=== PATIENT | female | born 1945 | race Caucasian/White ===

== ENCOUNTER 2016-11-24 08:16 | Inpatient (IN) | payer OTHER ==
[2016-11-15 09:58] VITALS: BMI 38.0
--- NOTE | 2016-11-15 11:09 | PAT Medication Instructions ---
Service Date Nov 15, 2016. Current Home Medication List Albuterol Sulfate (Proair Respiclick), 2 PUFFS INH QPM Amlodipine Besylate (Norvasc), 10 MG PO QAM Bupropion Hcl (Bupropion Hcl Er), 1 TAB PO BID Buspirone Hcl (Buspar), 15 MG PO BID Clopidogrel Bisulfate (Clopidogrel), 75 MG PO QAM Duloxetine HCl (Duloxetine HCl), 120 MG PO QAM Folic Acid (Folvite), 1 MG PO QAM Ipratropium [place] (Atrovent Hfa), 1 PUFFS INH BID Levothyroxine Sodium (Synthroid), 25 MCG PO QAM Lisinopril (Lisinopril), 1 TAB PO QAM Meloxicam (Meloxicam), 1 TAB PO QAM Metoprolol Succ (Toprol Xl) (Toprol-Xl ), 100 MG PO QAM Oxycodone Hcl (Oxycodone Hcl), 1 TAB PO TID PRN for Pain Oxygen (Oxygen), 3 LITERS NA HS Ropinirole (Requip), 4 MG PO HS Simvastatin (Simvastatin), 1 TAB PO QAM Tizanidine (Zanaflex ), 4 MG PO Q8 PRN for Anxiety Trazodone HCl (Trazodone HCl), 1 TAB PO HS Medication Instructions For Your Scheduled Surgery Clopidogrel Bisulfate (Clopidogrel), 75 MG PO QAM (per surgeon and PCP instructions- will call with instructions) - Hold the following medications evening prior to surgery: Ropinirole (Requip), 4 MG PO HS - Hold the following medications the morning of surgery: Tizanidine (Zanaflex ), 4 MG PO Q8 PRN for Anxiety Meloxicam (Meloxicam), 1 TAB PO QAM (not told to stop by surgeon) Lisinopril (Lisinopril), 1 TAB PO QAM Folic Acid (Folvite), 1 MG PO QAM - Take the following medications the morning of surgery with a sip of water: Simvastatin (Simvastatin), 1 TAB PO QAM Oxycodone Hcl (Oxycodone Hcl), 1 TAB PO TID PRN for Pain (can take up to four hours prior to surgery if needed) Metoprolol Succ (Toprol Xl) (Toprol-Xl ), 100 MG PO QAM Levothyroxine Sodium (Synthroid), 25 MCG PO QAM Ipratropium [place] (Atrovent Hfa), 1 PUFFS INH BID Duloxetine HCl (Duloxetine HCl), 120 MG PO QAM Bupropion Hcl (Bupropion Hcl Er), 1 TAB PO BID Buspirone Hcl (Buspar), 15 MG PO BID Amlodipine Besylate (Norvasc), 10 MG PO QAM Albuterol Sulfate (Proair Respiclick), 2 PUFFS INH QPM (if needed- also please bring with you on day of surgery) - Take the following medications as scheduled the night before surgery: Trazodone HCl (Trazodone HCl), 1 TAB PO HS Tizanidine (Zanaflex ), 4 MG PO Q8 PRN for Anxiety Oxygen (Oxygen), 3 LITERS NA HS Oxycodone Hcl (Oxycodone Hcl), 1 TAB PO TID PRN for Pain Ipratropium [place] (Atrovent Hfa), 1 PUFFS INH BID Bupropion Hcl (Bupropion Hcl Er), 1 TAB PO BID Buspirone Hcl (Buspar), 15 MG PO BID Albuterol Sulfate (Proair Respiclick), 2 PUFFS INH QPM If you have any questions please call us at [phone] or [phone] ( Daniella) or [phone]
[2016-11-15 11:31] LABS: BASO % 0.5 %; BASO ABS # 0.03 K/uL (0-0.2); COMPLETE YES; EOS % 2.8 %; HEMATOCRIT 39.8 % (37-47); IG% 0.2 %; LYMPH % 20.8 %; LYMPH ABS # 1.17 K/uL (1.2-3.4); MEAN CELL VOLUME 95.9 fL (80-100); MEAN CORPUSCULAR HGB CONC 34.4 g/dl (32-36); MONO % 11.2 %; NEUT % 64.5 %; PLATELET COUNT 218 K/uL (130-400); RED BLOOD COUNT 4.15 M/uL (4.2-5.4); WHITE BLOOD COUNT 5.62 K/uL (4.8-10.8)
[2016-11-15 11:49] LABS: PROTHROMBIN TIME (PATIENT) 10.6 SECONDS (9.0-12.0)
[2016-11-15 11:50] LABS: URINE APPEARANCE CLEAR (CLEAR); URINE BILIRUBIN NEG (NEG); URINE COLOR YELLOW; URINE EPITHELIAL CELL AUTO >30 /lpf (0-5); URINE NITRITE POS (NEG); URINE PH 6.5 (4.5-7.5); URINE SPECIFIC GRAVITY 1.017 (1.000-1.030); UROBILINOGEN NEG (NEG)
[2016-11-15 11:55] LABS: MANUAL MICROSCOPIC REQUIRED? NO; REVIEW REQ? YES
[2016-11-15 12:00] LABS: BUN/CREATININE RATIO 23.2 (10-20); CREATININE 0.85 mg/dl (0.60-1.20); POTASSIUM 4.4 mmol/L (3.5-5.1)
--- NOTE | 2016-11-22 16:18 | HISTORY & PHYSICAL EXAMINATION ---
DATE OF ADMISSION: 11/24/2016 CHIEF COMPLAINT: Lower extremity difficulty, paresthesias, numbness and tingling, hip pain, paresthesias and low back pain. HISTORY OF PRESENT ILLNESS: Radha is a pleasant young lady. She is 71. She is compromised significantly with spinal stenosis, nerve root irritation, lumbar spinal elements. She is somewhat pain free when she sits, significant pain with standing and walking and walking intolerance. PAST MEDICAL HISTORY: Positive for diabetes mellitus, depression, high cholesterol, hypertension, lung carcinoma, stomach ulcers, respiratory issues including COPD and sleep apnea. PAST SURGICAL HISTORY: Includes right and left knee replacement, lung cancer surgery, colon carcinoma surgery as well. ALLERGIES: DEMEROL, PROZAC. FAMILY HISTORY: Heart disease. SOCIAL HISTORY: She is a single young lady, 5 grown children. Never drinks alcohol, has quit cigarette smoking, little activity secondary to her pathology. REVIEW OF SYSTEMS: EYES: She denies any blurred vision, double vision, tinnitus or vertigo. Does have headaches. EAR, NOSE AND THROAT: Negative. CARDIOVASCULAR: Positive for heart disease and palpitations. She has some shortness of breath and lung issues as well. No nausea, vomiting, urgency, frequency. Positive for sleep issues and depression. She admits to some numbness and tingling and paresthesias to the lower extremities. The bulk of her pain is her back and lumbar spine with lower extremity radicular component, no easy bruisability. No immunologic issues. PHYSICAL EXAMINATION: GENERAL: She is 5 feet 3, 200 pounds. She is in no terrible distress sitting. She has significant problems upright standing position. HEAD, EYES, EARS, NOSE, AND THROAT: Essentially normal. CARDIAC: Normal S1, S2. LUNGS: Sounds are diminished. ABDOMEN: Soft, nontender, bowel sounds present. VITAL SIGNS: Blood pressure 130/80, pulse of 80, respiratory rate 16. EXTREMITIES: Intact. Slight muscle atrophy, slight weakness, slight gait abnormality. IMAGES: Demonstrating a grade 1 spondylolisthesis 4 on 5, stenosis 3-4 and 4 on 5. IMPRESSION: A delightful young lady with combination of some pulmonary issues, spinal stenosis issues, spondylolisthesis issues. DISPOSITION: We are having her medically cleared and embarking on surgery on 11/24/2016, posterior approach lumbar spine decompression laminectomy and fusion L3-L5.
[2016-11-24] VITALS (9 sets, daily range): BP systolic 102–143; BP diastolic 69–95; PULSE 73–81; TEMP 36.4–36.9; O2SAT 16–98; Ht 157.5 cm; Wt 95.2 kg
[~2016-11-24] VITALS: Ht 157.5 cm; Wt 95.2 kg
[~2016-11-24 08:16] MED LIST: ALBU18002 INH; AMLO10TA2 PO; ATRIN INH; Aspirin PO; BUPR-266 PO; BUSP15TA70 PO; CEFAZOLIN 2000 MG/60 ML D5W 60 ML IV SCH; CYM60 PO; DSY100 PO; FOLI1TAB7 PO; LACTATED RINGER'S 1000ML IV SCH; LEVO25TA PO; LISI-461 PO; MELO15TA4 PO; METO1TAB69 PO; NSS 1000ML IV SCH; OXGN; OXYC-164 PO; PLV75 PO; ROPI2TAB6 PO; ZCR40 PO; ZNF4 PO
[2016-11-24] MEDS ORDERED: ONDANSETRON INJ 2 MG/ML 2 ML VIAL ONE (08:20)
[2016-11-24] MEDS ORDERED: DEXAMETHASONE SOD INJ 4 MG/ML VIAL ONE (08:20)
[2016-11-24] MEDS ORDERED: ROCURONIUM BROMIDE 10 MG/ML 5 ML VIAL ONE (08:20)
[2016-11-24] MEDS ORDERED: EpHEDrine SULFATE INJ 50 MG/ML AMP ONE (08:20)
[2016-11-24] MEDS ORDERED: FENTANYL CITRATE INJ 50 MCG/1 ML 2 ML VIAL ONE ×2 (08:20→12:13)
[2016-11-24] MEDS ORDERED: GLYCOPYRROLATE INJ 0.2 MG/ML VIAL ONE (08:20)
[2016-11-24] MEDS ORDERED: PROPOFOL IV EMULSION 10 MG/ML 20 ML VIAL IV ONE (08:20)
[2016-11-24] MEDS ORDERED: SUCCINYLCHOLINE CHLORIDE 20 MG/ML 10 ML VIAL IV ONE (08:20)
[2016-11-24] MEDS ORDERED: LIDOCAINE HCL 2% 2 ML VIAL (20MG/ML) ONE (08:20)
[2016-11-24] MEDS ORDERED: NEOSTIGMINE METHYLSULFATE 5 MG/5 ML SYR ONE (08:20)
[2016-11-24] MEDS ORDERED: PHENYLEPHRINE HCL INJ 10 MG/ML VIAL ONE (08:20)
[2016-11-24] MEDS ORDERED: ALBUT/IPRATROP 3MG/0.5MG NEB 3 ML VIAL INH STA (09:32)
[2016-11-24] MEDS ORDERED: MIDAZOLAM HCL 1 MG/ML 2ML VIAL ONE (10:49)
--- NOTE | 2016-11-24 10:58 | History & Physical Bridge Note ---
H&P Re-Evaluation Bridge Note: I have examined the patient, reviewed the History & Physical and in the interval since the performance of the History & Physical I have noted the following changes of clinical significance: No changes noted
[2016-11-24] MEDS ORDERED: VANCOMYCIN HCL 1000MG/20ML VIAL TOP ONE (13:34)
[2016-11-24] MEDS ORDERED: BUPIVACAINE/EPINEPHRINE 0.5% MPF 1:200,000 30 ML VIAL INJ ONE (13:34)
[2016-11-24] MEDS ORDERED: BACITRACIN 50000 UNIT VIAL IR ONE (13:34)
[2016-11-24] MEDS ORDERED: THROMBIN FOR SOLN 20000 UNIT KIT TOP ONE (13:34)
[2016-11-24] MEDS ORDERED: GELATIN SPONGE SZ 100 TOP ONE (13:34)
--- NOTE | 2016-11-24 13:38 | DIAGNOSTIC IMAGING REPORT ---
LUMBAR SPINE, INTRAOPERATIVE FLUOROSCOPY HISTORY: L3-L5 laminectomy. FLUOROSCOPY TIME: 6 seconds. A single image was submitted. FINDINGS: Intraoperative fluoroscopy was provided for the lumbar spine. There are surgical instruments posterior to the lower lumbar spine. Exact levels are difficult to due to the suboptimal image quality. IMPRESSION: Fluoroscopy provided for a L3-L5 laminectomy. Electronically signed by: Kei Aleman M.D. 11/24/2016 1:36 PM Dictated Date/Time: 11/24/2016 1:35 PM
[2016-11-24] MEDS ORDERED: SODIUM CHLORIDE 0.9% 1000ML 1,000 ML IV SCH (13:57)
--- NOTE | 2016-11-24 13:59 | [facility] Post Operative Brief Note ---
Immediate Operative Summary Operative Date Nov 24, 2016. Pre-Operative Diagnosis Grade 1 spondylolisthesis 4 on 5, stenosis 3-4 and 4 on 5. Post-Operative Diagnosis Grade 1 spondylolisthesis 4 on 5, stenosis 3-4 and 4 on 5. Procedure(s) Performed L3-L5 Laminectomy and Fusion Surgeon Dr. Francisco Cline Scrap Breaker Surgeon(s) Bobby Herrera PA-C Estimated Blood Loss 600mL Specimens None per surgeon Complication(s) None Disposition Recovery Room / PACU
[2016-11-24] MEDS ORDERED: OXYCODONE/ACETAMINOPHEN 5-325 TAB PO PRN (14:00)
[2016-11-24] MEDS ORDERED: PROMETHAZINE HCL INJ 12.5 MG in SODIUM CHLORIDE 0.9% 50ML 50 ML IV PRN (14:00)
[2016-11-24] MEDS ORDERED: ACETAMINOPHEN 325 MG TAB PO PRN (14:00)
[2016-11-24] MEDS ORDERED: HYDROmorphone INJ 1 MG/ML SYR ONE ×2 (14:00→15:05)
[2016-11-24] MEDS ORDERED: ONDANSETRON INJ 2 MG/ML 2 ML VIAL IV PRN ×2 (14:00→14:15)
[2016-11-24] MEDS ORDERED: MAGNESIUM HYDROXIDE SUSP 30 ML UDC PO PRN (14:00)
[2016-11-24] MEDS ORDERED: NALOXONE HCL 0.4 MG/1 ML VIAL/CARP IV PRN (14:00)
[2016-11-24] MEDS ORDERED: METOCLOPRAMIDE HCL INJ 5 MG/ML 2 ML VIAL IV PRN (14:00)
[2016-11-24] MEDS: HYDROmorphone INJ 2 MG/ML SYR/VIAL IV PRN ×4 (14:09→14:25)
[2016-11-24] MEDS ORDERED: ATROPINE SULFATE 0.1 MG/ML 5ML SYR IV PRN (14:15)
[2016-11-24] MEDS ORDERED: EpHEDrine SULFATE INJ 50 MG/ML AMP IV PRN (14:15)
[2016-11-24] MEDS ORDERED: PHENYLEPHRINE 100MCG/ML 5ML SYR IV PRN (14:15)
--- NOTE | 2016-11-24 14:46 | OPERATIVE REPORT ---
DATE OF OPERATION: 11/24/2016 PREOPERATIVE DIAGNOSIS: Severe spinal stenosis, L3, L4, L5 lamina and spondylolisthesis 4 on 5. POSTOPERATIVE DIAGNOSIS: Same. PROCEDURE: Included a laminectomy L3, L4, L5, foraminotomy, partial facetectomy, decompression of all neural elements which will be the 5, 4, 3 nerve roots bilaterally. We also did a posterior lateral fusion. There was no instrumentation used, no implants. COMPLICATIONS: Zero. BLOOD LOSS: 600 mL. SURGEON: Dr. Cline. SHEET METAL WORKER: Bobby Herrera PA-C. OPERATION AND FINDINGS: PROCEDURE: The patient was taken to the operating room, generally intubated, anesthetic provided to the patient, placed prone. We worked diligently to get her in good positioning on the table. It was not simple, we scrubbed, prepped, draped sterile, made a skin incision from 3 down, dissecting the soft tissue. We marked with inner operative markings to know the area and location. We then decompressed carefully each neural element laminectomy of L3, 4, 5. Foraminotomy partial facetectomy. We used Kerrison burrs, curettes. It was quite laborious, quite difficult job. We did not encounter any danger meaning we did not harm the patient. At the conclusion of our decompression, I assessed stability. I felt that the patient had a spondylolisthesis, but it was rock solid with no motion whatsoever at the table, significant bone that was bridging from 3, 4 and 5. I felt a fusion would be unnecessary for the patient. We irrigated and closed in layers first with 1 Vicryl, 2-0 and staple gun on the skin, all over Hemovac drain. Prior to closure, we did bone graft out of the transverse processes, 3, 4 and 5 to do a noninstrumented spinal fusion. The patient then returned to PACU in improved stable condition. There were no complications. I attest to the content of the Intraoperative Record and any orders documented therein. Any exceptio ns are noted below.
--- NOTE | 2016-11-24 14:50 | Anesthesiology Progress Note ---
Anesthesia Post Op Note Date & Time Nov 24, 2016 at 14:49 Vital Signs Pain Intensity: 5 Vital Signs Past 12 Hours Date Time Temp Pulse Resp B/P Pulse Ox O2 Delivery O2 Flow Rate FiO2 11/24/16 14:14 71 10 134/95 100 11/24/16 14:14 71 10 11/24/16 14:09 75 17 155/86 100 11/24/16 14:09 75 17 11/24/16 14:04 79 19 11/24/16 14:04 79 19 92/74 100 11/24/16 13:59 80 13 11/24/16 13:59 37.1 85 23 167/96 99 Mask 10 11/24/16 13:59 80 13 162/85 100 11/24/16 11:36 81 14 98 Room Air 11/24/16 08:59 36.5 73 20 142/75 94 Room Air Notes Mental Status: alert / awake / arousable, participated in evaluation Pt Amnestic to Procedure: Yes Nausea / Vomiting: adequately controlled Pain: adequately controlled Airway Patency, RR, SpO2: stable & adequate BP & HR: stable & adequate Hydration State: stable & adequate Anesthetic Complications: no major complications apparent Pt doing well.
[2016-11-24] MEDS ORDERED: IV FLUIDS COMPLETED PRN (15:00)
[2016-11-24] MEDS: SODIUM CHLORIDE 0.9% 1000ML 1,000 ML IV SCH (15:52)
[2016-11-24] MEDS ORDERED: HydrALAZINE HCL 20 MG/ML VIAL IV. PRN (17:45)
[2016-11-24] MEDS: CEFAZOLIN IV 2,000 MG in DEXTROSE 5% 50ML 50 ML IV SCH (17:47)
[2016-11-24] MEDS: DEXAMETHASONE INJ 10 MG in SYRINGE 0 ML IV SCH (17:47)
[2016-11-24] MEDS: HYDROmorphone HCL 0.5MG/ML 50 ML CASSETTE IV PRN ×2 (18:05→23:02)
[2016-11-24 19:10] LABS: BASO % 0.1 %; BASO ABS # 0.01 K/uL (0-0.2); COMPLETE YES; HEMATOCRIT 35.2 % (37-47); IG% 0.1 %; LYMPH % 4.7 %; LYMPH ABS # 0.53 K/uL (1.2-3.4); MEAN CELL VOLUME 96.2 fL (80-100); MEAN CORPUSCULAR HEMOGLOBIN 33.1 pg (25-34); MEAN CORPUSCULAR HGB CONC 34.4 g/dl (32-36); MEAN PLATELET VOLUME 9.5 fL (7.4-10.4); MONO % 3.5 %; NEUT % 91.6 %; PLATELET COUNT 231 K/uL (130-400); RED BLOOD COUNT 3.66 M/uL (4.2-5.4); WHITE BLOOD COUNT 11.18 K/uL (4.8-10.8)
[2016-11-24 19:29] LABS: BUN/CREATININE RATIO 21.2 (10-20); CALCIUM 8.6 mg/dl (8.5-10.1); CREATININE 0.99 mg/dl (0.60-1.20); POTASSIUM 4.9 mmol/L (3.5-5.1)
--- NOTE | 2016-11-24 19:51 | Medical Consult ---
Consultation Date of Consultation: Nov 24, 2016. Attending Physician: Francisco Cline DO Reason for Consultation: Medical management History of Present Illness This is a 71 y/o female with a history of HTN, HLD, CAD, [place], right ICA CVA in 2016, lung cancer, COPD, MADI, Sarmiento's esophagus, hypothyroidism, colon cancer , uterine cancer, insomnia, and restless leg syndrome who presents s/p L3-L5 laminectomy and fusion with Dr. Cline on 11/24 for medical management. The patient is very drowsy and lethargic postoperatively. It was difficult to obtain a complete ROS from the patient as she fell asleep every few seconds or so. She states that she has not urinated, passed gas, or had a bowel movement yet. She has not eaten. She complains of soreness in her back at the surgical site. The patient denies fevers, chills, sweats, chest pain, palpitations, claudication, cough, wheezing, shortness of breath, nausea, vomiting, abdominal pain, dysuria, hematuria, urinary retention, paralysis, weakness, numbness and tingling. Past Medical/Surgical History Medical Problems: (1) Altered mental status Status: Acute (2) Cellulitis of left foot Status: Acute (3) Overdose Status: Acute (4) Suicide gesture Status: Acute Family History Colon cancer Depression Social History Smoking Status: Current Every Day Smoker (11/14 ppd) Smokeless Tobacco Use: No Alcohol Use: none Drug Use: none Marital Status: Housing Status: lives with family (daughter and grandson) Occupation Status: retired Allergies Coded Allergies: Aspirin (Unverified Allergy, Mild, Stomach Pain/Cramping, 11/24/16) Chlorzoxazone (Unverified Allergy, Unknown, DIZZINESS, BALANCE ISSUES , 10/29) Meperidine (Unverified Allergy, Unknown, VOMITING,FAINTING, 11/24/16) Diazepam (Unverified Adverse Reaction, Severe, Suicidal Thoughts, 11/24/16) Fluoxetine (Unverified Adverse Reaction, Mild, Uncontrollable Crying, 11/24) Gabapentin (Verified Adverse Reaction, Unknown, COMBATIVENESS , 11/24/16) Pregabalin (Unverified Adverse Reaction, Unknown, HALLUCINATIONS, 11/24/16) Current Inpatient Medications Current Inpatient Medications Medications (Trade) Dose Ordered Sig/Fran Route Start Time Stop Time Status Last Admin Dose Admin Sodium Chloride 1,000 ml @ 15 mls/hr Q24H IV 11/24/16 06:00 11/25/16 05:59 Cefazolin Sodium (Ancef 2000mg/60 ml D5W) 60 ml @ 100 mls/hr PREOP IV 11/24/16 06:00 11/25/16 05:59 11/24/16 11:07 100 MLS/HR Acetaminophen (Tylenol Tab) 650 mg Q6H PRN PO 11/24/16 14:00 12/24/16 13:59 Hydromorphone HCl (Dilaudid Inj) 1 mg Q3H PRN IV 11/25/16 08:00 12/09/16 07:59 Hydromorphone HCl 1.5 mg 1.5 mg Q3H PRN IV 11/25/16 08:00 12/09/16 07:59 Promethazine HCl/ Sodium Chloride (Phenergan Inj/ Nss 50ml) 50.5 ml @ 202 mls/hr Q6H PRN IV 11/24/16 14:00 12/24/16 13:59 Ondansetron HCl (Zofran Inj) 4 mg Q6H PRN IV 11/24/16 14:00 12/24/16 13:59 Metoclopramide HCl (Reglan Inj) 10 mg Q6H PRN IV 11/24/16 14:00 12/24/16 13:59 Polyethylene (Miralax Powder Packet) 17 gm DAILY PO 11/25/16 09:00 12/25/16 08:59 Bisacodyl (Dulcolax Tab) 5 mg DAILY PRN PO 11/25/16 06:00 12/25/16 05:59 Bisacodyl (Dulcolax Supp) 10 mg DAILY PRN VA 11/25/16 06:00 12/25/16 05:59 Magnesium Hydroxide (Milk Of Magnesia Susp) 30 ml DAILY PRN PO 11/24/16 14:00 12/24/16 13:59 Diphenhydramine HCl (Benadryl Cap) 25 mg Q6H PRN PO 11/24/16 14:00 12/24/16 13:59 Oxycodone/ Acetaminophen (Percocet 5-325MG Tab) 1 tab Q4H PRN PO 11/24/16 14:00 12/08/16 13:59 Oxycodone/ Acetaminophen 2 tab 2 tab Q4H PRN PO 11/24/16 14:00 12/08/16 13:59 Cefazolin Sodium 2000 mg/Dextrose 60 ml @ 100 mls/hr Q8H IV 11/24/16 18:00 11/25/16 10:35 11/24/16 17:47 100 MLS/HR Dexamethasone Sodium Phosphate 10 mg/Syringe 2.5 ml @ 1 mls/min Q8H IV 11/24/16 17:00 11/26/16 01:03 11/24/16 17:47 1 MLS/MIN Sodium Chloride (Nss 1000ml) 1,000 ml @ 80 mls/hr [id number] IV 11/24/16 13:57 12/24/16 13:56 11/24/16 15:52 80 MLS/HR Naloxone HCl (Narcan Inj) 0.1 mg Q5M PRN IV 11/24/16 14:00 11/25/16 08:00 Hydromorphone HCl 25 mg 25 mg PRN PRN IV 11/24/16 14:00 11/25/16 08:00 11/24/16 18:05 25 MG Sodium Chloride (Nss 1000ml) 1,000 ml @ 15 mls/hr Q24H IV 11/24/16 13:57 11/25/16 08:00 Hydromorphone HCl (Dilaudid Inj) 0.5 mg Q5M PRN IV 11/24/16 14:15 11/24/16 19:15 11/24/16 14:25 0.5 MG Ondansetron HCl (Zofran Inj) 4 mg ONE PRN IV 11/24/16 14:15 11/24/16 19:15 Ephedrine Sulfate (EpHEDrine SULFATE INJ) 5 mg Q5M PRN IV 11/24/16 14:15 11/25/16 19:15 Atropine Sulfate (Atropine Sulfate 0.1MG/Ml Inj) 0.5 mg Q1M PRN IV 11/24/16 14:15 11/24/16 19:15 Phenylephrine HCl (Dav-Synephrine 500MCG/5ML Syr) 100 mcg Q5M PRN IV 11/24/16 14:15 11/24/16 19:15 Amlodipine Besylate (Norvasc Tab) 10 mg QAM PO 11/25/16 09:00 12/25/16 08:59 Bupropion HCl (Wellbutrin-Sr Tab) 100 mg BID PO 11/24/16 21:00 12/24/16 20:59 Buspirone HCl (BusPAR TAB) 15 mg BID PO 11/24/16 21:00 12/24/16 20:59 Clopidogrel Bisulfate (plAVix TAB) 75 mg QAM PO 11/25/16 09:00 12/25/16 08:59 Duloxetine HCl (Cymbalta Cap) 120 mg QAM PO 11/25/16 09:00 12/25/16 08:59 Folic Acid (Folvite Tab) 1 mg QAM PO 11/25/16 09:00 12/25/16 08:59 Ipratropium [place] (Atrovent Hfa Inhaler) 1 puffs BID INH 11/24/16 21:00 12/24/16 20:59 Levothyroxine Sodium (Synthroid Tab) 25 mcg DAILYBB PO 11/25/16 06:00 12/25/16 05:59 Lisinopril (Zestril Tab) 10 mg QAM PO 11/25/16 09:00 12/25/16 08:59 Future Hold Metoprolol Succinate (Toprol Xl Tab) 100 mg QAM PO 11/25/16 09:00 12/25/16 08:59 Ropinirole HCl (Requip Tab) 4 mg HS PO 11/24/16 21:00 12/24/16 20:59 Simvastatin (Zocor Tab) 40 mg HS PO 11/24/16 21:00 12/24/16 20:59 Tizanidine HCl (Zanaflex Tab) 4 mg Q8 PRN PO 11/24/16 14:15 12/24/16 14:14 Albuterol (Proair Hfa) 2 puffs QPM INH 11/24/16 21:00 12/24/16 20:59 Miscellaneous (Iv Fluids Completed) 1 ea PRN PRN N/A 11/24/16 15:00 11/24/17 14:59 Hydralazine HCl (HydrALAZINE INJ) 10 mg Q6H PRN IV. 11/24/16 17:45 12/24/16 17:44 Review of Systems See HPI for pertinent positives and negatives. All other systems reviewed and negative. Physical Exam Date Time Temp Pulse Resp B/P Pulse Ox O2 Delivery O2 Flow Rate FiO2 11/24/16 19:18 36.4 77 16 117/95 95 Nasal Cannula 4.0 11/24/16 16:40 36.8 78 20 127/80 92 Nasal Cannula 4.0 11/24/16 16:12 36.8 73 26 143/72 95 Nasal Cannula 4.0 11/24/16 15:50 Nasal Cannula 4.0 11/24/16 15:50 Nasal Cannula 4.0 11/24/16 15:40 36.6 76 24 130/79 94 Nasal Cannula 4.0 11/24/16 15:13 36.5 74 16 116/73 96 Nasal Cannula 4 11/24/16 14:14 71 10 134/95 100 11/24/16 14:14 71 10 11/24/16 14:09 75 17 155/86 100 11/24/16 14:09 75 17 11/24/16 14:04 79 19 11/24/16 14:04 79 19 92/74 100 11/24/16 13:59 80 13 11/24/16 13:59 37.1 85 23 167/96 99 Mask 10 11/24/16 13:59 80 13 162/85 100 11/24/16 11:36 81 14 98 Room Air 11/24/16 08:59 36.5 73 20 142/75 94 Room Air General Appearance: WD/WN, no apparent distress, + obese, + pertinent finding ( very lethargic, falls asleep every few seconds, rouses easily by voice) Head: normocephalic, atraumatic Eyes: normal inspection, PERRL, + pertinent finding (unable to perform EOM as pt kept falling asleep) ENT: normal ENT inspection, hearing grossly normal, pharynx normal Neck: supple, no JVD, trachea midline Respiratory/Chest: lungs clear, normal breath sounds, no respiratory distress Cardiovascular: regular rate, rhythm, no gallop, no murmur Abdomen/GI: normal bowel sounds, non tender, soft Extremities/Musculoskelatal: normal inspection, no calf tenderness, no pedal edema Neurologic/Psych: normal mood/affect, oriented x 3, + pertinent finding ( lethargic, keeps falling sleep, rouses easily) Skin: normal color, warm/dry, no rash Laboratory Results Last 24 Hours Test 11/24/16 17:03 11/24/16 18:50 Bedside Glucose 139 mg/dl White Blood Count 11.18 K/uL Red Blood Count 3.66 M/uL Hemoglobin 12.1 g/dL Hematocrit 35.2 % Mean Corpuscular Volume 96.2 fL Mean Corpuscular Hemoglobin 33.1 pg Mean Corpuscular Hemoglobin Concent 34.4 g/dl Platelet Count 231 K/uL Mean Platelet Volume 9.5 fL Neutrophils (%) (Auto) 91.6 % Lymphocytes (%) (Auto) 4.7 % Monocytes (%) (Auto) 3.5 % Eosinophils (%) (Auto) 0.0 % Basophils (%) (Auto) 0.1 % Neutrophils # (Auto) 10.24 K/uL Lymphocytes # (Auto) 0.53 K/uL Monocytes # (Auto) 0.39 K/uL Eosinophils # (Auto) 0.00 K/uL Basophils # (Auto) 0.01 K/uL RDW Standard Deviation 45.4 fL RDW Coefficient of Variation 13.0 % Immature Granulocyte % (Auto) 0.1 % Immature Granulocyte # (Auto) 0.01 K/uL Sodium Level 143 mmol/L Potassium Level 4.9 mmol/L Chloride Level 107 mmol/L Carbon Dioxide Level 29 mmol/L Anion Gap 7.0 mmol/L Blood Urea Nitrogen 21 mg/dl Creatinine 0.99 mg/dl Est Creatinine Clear Calc Drug Dose 57.7 ml/min Estimated GFR () 67.4 Estimated GFR (Non- 58.1 BUN/Creatinine Ratio 21.2 Random Glucose 137 mg/dl Calcium Level 8.6 mg/dl Assessment & Plan 71 y/o female with a history of HTN, HLD, CAD, KS, right ICA CVA in 2016, lung cancer, COPD, MADI, Sarmiento's esophagus, hypothyroidism, colon cancer, uterine cancer, anxiety and depression, insomnia, and restless leg syndrome who presents s/p L3-L5 laminectomy and fusion with Dr. Cline on 11/24 for medical management. -Pain management, DVT prophylaxis, and PT/OT as per primary team -Hold off on TECH[employer]ICAL SALES [employer]IST pump and any food until patient is more alert/awake, currently a high aspiration risk CAD, h/o KS and CVA, HTN--HR and BP stable -Hold lisinopril 10 mg PO qd until renal function checked/stable -Continue Toprol XL 100 mg PO qd, hold if SBP<100 or HR<60 -Continue amlodipine 10 mg PO qd -Cover with hydralazine 10 mg IV q6h prn SBP >180 -Resume Plavix when ok with primary team HLD -Continue simvastatin 40 mg PO qhs COPD -Continue Atrovent 1 puff inh BID and ProAir 2 puffs inh qpm MADI--Pt does not use CPAP, does not want one ordered -Continue 3L NC qhs Sarmiento's esophagus -Continue Protonix 40 mg PO qd Hypothyroidism -Continue Synthroid 25 mcg PO qd Anxiety and depression -Continue buspirone 15 mg PO BID -Continue bupropion 100 mg PO BID and duloxetine 120 mg PO qd Restless leg syndrome -Continue Requip 4 mg PO qhs Code Status -Level I, FULL RESUSCITATION STATUS Thank you for this consultation. We will continue to follow. I agree with PA assessment and plan CAD stable No chest pain Monitor for acute blood loss anemia Dispo and DVT ppx per primary team
[2016-11-24] MEDS: IPRATROPIUM BROMIDE HFA INHALER INH SCH (21:37)
[2016-11-24] MEDS: ALBUTEROL HFA INHALER 8.5 GM INH SCH (21:37)
[2016-11-24] MEDS: BuPROPion SR 100 MG TABCR PO SCH (21:37)
[2016-11-24] MEDS: SIMVASTATIN 40 MG TAB PO SCH (21:38)
[2016-11-24] MEDS: BusPIRone 15 MG TAB PO SCH (21:38)
[2016-11-24] MEDS: ROPINIROLE HCL 1 MG TAB PO SCH (21:38)
[2016-11-25] VITALS (9 sets, daily range): BP systolic 98–170; BP diastolic 63–105; PULSE 69–86; TEMP 36.4–37.1; O2SAT 85–97
[2016-11-25] MEDS: DEXAMETHASONE INJ 10 MG in SYRINGE 0 ML IV SCH ×3 (00:51→17:44)
[2016-11-25] MEDS: CEFAZOLIN IV 2,000 MG in DEXTROSE 5% 50ML 50 ML IV SCH ×2 (02:09→10:00)
[2016-11-25] MEDS: SODIUM CHLORIDE 0.9% 1000ML 1,000 ML IV SCH (02:10)
[2016-11-25] MEDS: LEVOTHYROXINE 25 MCG TAB PO SCH (05:26)
[2016-11-25] MEDS ORDERED: BISACODYL 5 MG TABEC PO PRN (06:00)
[2016-11-25] MEDS ORDERED: BISACODYL 10 MG SUPP PR PRN (06:00)
[2016-11-25 06:16] LABS: HEMATOCRIT 31.6 % (37-47); MEAN CELL VOLUME 94.6 fL (80-100); MEAN CORPUSCULAR HEMOGLOBIN 32.3 pg (25-34); MEAN CORPUSCULAR HGB CONC 34.2 g/dl (32-36); MEAN PLATELET VOLUME 9.5 fL (7.4-10.4); PLATELET COUNT 231 K/uL (130-400); RED BLOOD COUNT 3.34 M/uL (4.2-5.4); WHITE BLOOD COUNT 9.36 K/uL (4.8-10.8)
[2016-11-25 06:42] LABS: BUN/CREATININE RATIO 24.5 (10-20); CALCIUM 8.3 mg/dl (8.5-10.1); CREATININE 0.87 mg/dl (0.60-1.20); POTASSIUM 4.7 mmol/L (3.5-5.1)
[2016-11-25] MEDS ORDERED: HYDROmorphone INJ 2 MG/ML SYR/VIAL IV PRN (08:00)
[2016-11-25] MEDS ORDERED: HYDROmorphone INJ 1 MG/ML SYR IV PRN (08:00)
[2016-11-25] MEDS: OXYCODONE/ACETAMINOPHEN 5-325 TAB PO PRN ×3 (08:09→19:26)
[2016-11-25] MEDS: AMLODIPINE BESYLATE 5 MG TAB PO SCH (08:09)
[2016-11-25] MEDS: METOPROLOL SUCC 50MG EXT REL TAB PO SCH (08:10)
--- NOTE | 2016-11-25 08:25 | Anesthesiology Progress Note ---
Anesthesia Post Op Note Date & Time Nov 25, 2016 at 08:24 Vital Signs Pain Intensity: 8.0 Vital Signs Past 12 Hours Date Time Temp Pulse Resp B/P Pulse Ox O2 Delivery O2 Flow Rate FiO2 11/25/16 07:53 94 Nasal Cannula 3.0 11/25/16 07:49 36.6 69 16 170/90 94 Nasal Cannula 3.0 11/25/16 04:04 36.7 70 18 127/80 97 Nasal Cannula 4.0 11/25/16 00:10 36.4 70 16 145/75 97 Room Air 11/24/16 23:45 96 Nasal Cannula 4.0 11/24/16 21:30 36.9 76 16 137/83 16 Nasal Cannula 4.0 Notes Mental Status: alert / awake / arousable, participated in evaluation Pt Amnestic to Procedure: Yes Nausea / Vomiting: adequately controlled Pain: adequately controlled Airway Patency, RR, SpO2: stable & adequate BP & HR: stable & adequate Hydration State: stable & adequate Anesthetic Complications: no major complications apparent
[2016-11-25] MEDS: POLYETHYLENE (MIRALAX) 17 GM PACK PO SCH (09:24)
[2016-11-25] MEDS: BuPROPion SR 100 MG TABCR PO SCH ×2 (09:24→20:50)
[2016-11-25] MEDS: DULOXETINE HCL 60 MG CAP PO SCH (09:24)
[2016-11-25] MEDS: CLOPIDOGREL BISULFATE 75 MG TAB PO SCH (09:24)
[2016-11-25] MEDS: BusPIRone 15 MG TAB PO SCH ×2 (09:24→20:45)
[2016-11-25] MEDS: IPRATROPIUM BROMIDE HFA INHALER INH SCH ×2 (09:25→20:44)
[2016-11-25] MEDS ORDERED: NURSING VERBAL MED ORDER ONE (11:15)
--- NOTE | 2016-11-25 17:46 | Progress Note ---
Subjective Date of Service: Nov 25, 2016. Subjective Pt evaluation today including: conversation w/ patient, physical exam, chart review, lab review, review of inpatient medication list some back pain pulse ox low but doesn't feel sob. notes that she wears oxygen at bedtime - supposed to wear CPAP but "i throw it off at 2am" notes she's not followed up w sleep medicine since moving to [facility] a year ago. notes had lung resection. relates an ortho PA (who is not familiar to me by name) that she does not want seeing her. no f/c/s no other complaints difficult to obtain full HPI and ROS as she mostly wants to relate why she does not want to see this PA. but as best i can ascertain HPI and ROS otherwise is negative Problem List Medical Problems: (1) Altered mental status Status: Acute (2) Cellulitis of left foot Status: Acute (3) Overdose Status: Acute (4) Suicide gesture Status: Acute Review of Systems ros otherwise negative except for as above Objective Vital Signs Date Time Temp Pulse Resp B/P Pulse Ox O2 Delivery O2 Flow Rate FiO2 11/25/16 15:35 37.0 80 18 137/87 95 Nasal Cannula 2.0 11/25/16 11:34 37.1 86 14 148/84 95 Nasal Cannula 2.0 11/25/16 10:03 155/105 94 Nasal Cannula 2.0 11/25/16 07:53 94 Nasal Cannula 3.0 11/25/16 07:49 36.6 69 16 170/90 94 Nasal Cannula 3.0 11/25/16 07:35 Nasal Cannula 3.0 11/25/16 04:04 36.7 70 18 127/80 97 Nasal Cannula 4.0 11/25/16 00:10 36.4 70 16 145/75 97 Room Air 11/24/16 23:45 96 Nasal Cannula 4.0 11/24/16 21:30 36.9 76 16 137/83 16 Nasal Cannula 4.0 11/24/16 20:16 36.5 74 12 102/69 96 Nasal Cannula 4.0 11/24/16 19:18 36.4 77 16 117/95 95 Nasal Cannula 4.0 Physical Exam General Appearance: no apparent distress Eyes: EOMI ENT: hearing grossly normal Neck: trachea midline Respiratory/Chest: no respiratory distress, no accessory muscle use, + decreased breath sounds (globally, but L side more diminished; no r/r/w good effort. pulse ox ~88-89% then improves after incentive spirometry to mid 90's) Cardiovascular: regular rate, rhythm Extremities: normal range of motion Neurologic/Psychiatric: disease education specialist II-XII nml as tested, alert Skin: normal color, warm/dry Laboratory Results Last 24 Hours Test 11/24/16 18:50 11/25/16 05:30 White Blood Count 11.18 K/uL 9.36 K/uL Red Blood Count 3.66 M/uL 3.34 M/uL Hemoglobin 12.1 g/dL 10.8 g/dL Hematocrit 35.2 % 31.6 % Mean Corpuscular Volume 96.2 fL 94.6 fL Mean Corpuscular Hemoglobin 33.1 pg 32.3 pg Mean Corpuscular Hemoglobin Concent 34.4 g/dl 34.2 g/dl Platelet Count 231 K/uL 231 K/uL Mean Platelet Volume 9.5 fL 9.5 fL Neutrophils (%) (Auto) 91.6 % Lymphocytes (%) (Auto) 4.7 % Monocytes (%) (Auto) 3.5 % Eosinophils (%) (Auto) 0.0 % Basophils (%) (Auto) 0.1 % Neutrophils # (Auto) 10.24 K/uL Lymphocytes # (Auto) 0.53 K/uL Monocytes # (Auto) 0.39 K/uL Eosinophils # (Auto) 0.00 K/uL Basophils # (Auto) 0.01 K/uL RDW Standard Deviation 45.4 fL 44.3 fL RDW Coefficient of Variation 13.0 % 12.8 % Immature Granulocyte % (Auto) 0.1 % Immature Granulocyte # (Auto) 0.01 K/uL Sodium Level 143 mmol/L 144 mmol/L Potassium Level 4.9 mmol/L 4.7 mmol/L Chloride Level 107 mmol/L 107 mmol/L Carbon Dioxide Level 29 mmol/L 30 mmol/L Anion Gap 7.0 mmol/L 7.0 mmol/L Blood Urea Nitrogen 21 mg/dl 21 mg/dl Creatinine 0.99 mg/dl 0.87 mg/dl Est Creatinine Clear Calc Drug Dose 57.7 ml/min 65.7 ml/min Estimated GFR () 67.4 78.8 Estimated GFR (Non- 58.1 68.0 BUN/Creatinine Ratio 21.2 24.5 Random Glucose 137 mg/dl 129 mg/dl Calcium Level 8.6 mg/dl 8.3 mg/dl Assessment and Plan hypoxia -most likely atelectasis superimposed on baseline impaired lung function and impaired lung volumes -continue O2, supportive care, and serial exams to r/o any developing process -incentive spirometry (encouraged to do it 5x/hr) acute blood loss anemia -no s/s -no hypotension -no indications for transfusion -f/u in AM CAD, h/o [place] and CVA, HTN--HR and BP stable -can resume lisinopril -Continue Toprol XL 100 mg PO qd, hold if SBP<100 or HR<60 -Continue amlodipine 10 mg PO qd -Cover with hydralazine 10 mg IV q6h prn SBP >180 -Resume Plavix when ok with primary team HLD -Continue simvastatin 40 mg PO qhs COPD -Continue Atrovent 1 puff inh BID and ProAir 2 puffs inh qpm MADI--doesn't want CPAP - tried to explain how O2 is not sufficient treatment to alter MADI morbidity and mortality. highly recommended f/u sleep medicine in [facility]. 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
[2016-11-25] MEDS: ALBUTEROL HFA INHALER 8.5 GM INH SCH (20:44)
[2016-11-25] MEDS: TRAZODONE HCL 100 MG TAB PO SCH (20:46)
[2016-11-25] MEDS: SIMVASTATIN 40 MG TAB PO SCH (21:41)
[2016-11-25] MEDS: ROPINIROLE HCL 1 MG TAB PO SCH (21:42)
[2016-11-26] MEDS: DEXAMETHASONE INJ 10 MG in SYRINGE 0 ML IV SCH (00:27)
[2016-11-26] MEDS: LEVOTHYROXINE 25 MCG TAB PO SCH (06:06)
[2016-11-26 06:34] LABS: HEMATOCRIT 27.4 % (37-47); MEAN CELL VOLUME 95.8 fL (80-100); MEAN CORPUSCULAR HEMOGLOBIN 33.2 pg (25-34); MEAN CORPUSCULAR HGB CONC 34.7 g/dl (32-36); MEAN PLATELET VOLUME 9.7 fL (7.4-10.4); PLATELET COUNT 197 K/uL (130-400); RED BLOOD COUNT 2.86 M/uL (4.2-5.4)
[2016-11-26 07:08] LABS: BUN/CREATININE RATIO 30.9 (10-20); CALCIUM 8.6 mg/dl (8.5-10.1); CREATININE 0.83 mg/dl (0.60-1.20); POTASSIUM 4.3 mmol/L (3.5-5.1)
[2016-11-26 08:30] VITALS: BP 165/83; PULSE 74; TEMP 36.3; O2SAT 94
[2016-11-26] MEDS: CLOPIDOGREL BISULFATE 75 MG TAB PO SCH (08:48)
[2016-11-26] MEDS: AMLODIPINE BESYLATE 5 MG TAB PO SCH (08:48)
[2016-11-26] MEDS: METOPROLOL SUCC 50MG EXT REL TAB PO SCH (08:48)
[2016-11-26] MEDS: IPRATROPIUM BROMIDE HFA INHALER INH SCH ×2 (08:49→20:54)
[2016-11-26] MEDS: DULOXETINE HCL 60 MG CAP PO SCH (08:49)
[2016-11-26] MEDS: POLYETHYLENE (MIRALAX) 17 GM PACK PO SCH (08:50)
[2016-11-26 09:14] VITALS: O2SAT 94
--- NOTE | 2016-11-26 09:46 | Discharge Instructions ---
Discharge Instructions Admission Reason for Admission: Spinal Stenosis Discharge Discharge Diagnosis / Problem: stenosis Discharge Goals Goal(s): Improve function Activity Recommendations Activity Limitations: as noted below Lifting Limitations: gradually increase as tolerated Exercise/Sports Limitations: until after follow-up appointment May Resume Sexual Activity: after follow-up appointment Shower/Bathe: may shower/bathe in 3 days, keep incision dry Driving or Machine Use: just be smart . Current Hospital Diet Patient's current hospital diet: Regular Diet Discharge Diet Recommended Diet: Regular Diet Fluid Restriction: None Procedures Procedures Performed: L3-L5 Laminectomy and Fusion Pending Studies Studies pending at discharge: no Medical Emergencies . Who to Call and When: Medical Emergencies: If at any time you feel your situation is an emergency, please call 911 immediately. . Non-Emergent Contact Non-Emergency issues call your: Surgeon . "Provider Documentation" section prepared by Francisco Cline. VTE Core Measure Inpt VTE Proph given/why not?: Treatment not indicated
[2016-11-26] MEDS: BusPIRone 15 MG TAB PO SCH ×2 (10:03→20:55)
[2016-11-26] MEDS: BuPROPion SR 100 MG TABCR PO SCH ×2 (10:03→20:57)
[2016-11-26] MEDS: LISINOPRIL 10 MG TAB PO SCH (11:36)
[2016-11-26] MEDS: OXYCODONE/ACETAMINOPHEN 5-325 TAB PO PRN ×2 (11:38→18:22)
--- NOTE | 2016-11-26 11:41 | Hospitalist Progress Note ---
Hospitalist Progress Note Date of Service Nov 26, 2016. (Makenna Reed ., KATY) Subjective Pt evaluation today including: conversation w/ patient, physical exam, chart review, lab review, review of inpatient medication list Voiding: no voiding problems, no incontinence Patient states she is feeling OK. + 8/10 pain. She is eating and drinking OK. Denies any gas or BM postop. Patient denies any fever, chills, sweats, lightheadedness, dizziness, vision changes, CP, palpitations, edema, SOB, wheezing, cough, abdominal pain, nausea, vomiting, diarrhea, urinary symptoms, melena, numbness/tingling, weakness, anxiety/depression, active bleeding, or new skin discoloration/changes. (Makenna Reed ., DIMITRYC) Medications Current Inpatient Medications Medications (Trade) Dose Ordered Sig/Fran Route Start Time Stop Time Status Last Admin Dose Admin Acetaminophen (Tylenol Tab) 650 mg Q6H PRN PO 11/24/16 14:00 12/24/16 13:59 Hydromorphone HCl (Dilaudid Inj) 1 mg Q3H PRN IV 11/25/16 08:00 12/09/16 07:59 11/25/16 09:23 1 MG Hydromorphone HCl 1.5 mg 1.5 mg Q3H PRN IV 11/25/16 08:00 12/09/16 07:59 Promethazine HCl/ Sodium Chloride (Phenergan Inj/ Nss 50ml) 50.5 ml @ 202 mls/hr Q6H PRN IV 11/24/16 14:00 12/24/16 13:59 Ondansetron HCl (Zofran Inj) 4 mg Q6H PRN IV 11/24/16 14:00 12/24/16 13:59 Metoclopramide HCl (Reglan Inj) 10 mg Q6H PRN IV 11/24/16 14:00 12/24/16 13:59 Polyethylene (Miralax Powder Packet) 17 gm DAILY PO 11/25/16 09:00 12/25/16 08:59 11/26/16 08:50 17 GM Bisacodyl (Dulcolax Tab) 5 mg DAILY PRN PO 11/25/16 06:00 12/25/16 05:59 Bisacodyl (Dulcolax Supp) 10 mg DAILY PRN [place] 11/25/16 06:00 12/25/16 05:59 Magnesium Hydroxide (Milk Of Magnesia Susp) 30 ml DAILY PRN PO 11/24/16 14:00 12/24/16 13:59 Diphenhydramine HCl (Benadryl Cap) 25 mg Q6H PRN PO 11/24/16 14:00 12/24/16 13:59 Oxycodone/ Acetaminophen (Percocet 5-325MG Tab) 1 tab Q4H PRN PO 11/24/16 14:00 12/08/16 13:59 Oxycodone/ Acetaminophen (Percocet 5-325MG Tab) 2 tab Q4H PRN PO 11/24/16 14:00 12/08/16 13:59 11/25/16 19:26 2 TAB Amlodipine Besylate (Norvasc Tab) 10 mg QAM PO 11/25/16 09:00 12/25/16 08:59 11/26/16 08:48 10 MG Bupropion HCl (Wellbutrin-Sr Tab) 100 mg BID PO 11/24/16 21:00 12/24/16 20:59 11/26/16 10:03 100 MG Buspirone HCl (BusPAR TAB) 15 mg BID PO 11/24/16 21:00 12/24/16 20:59 11/26/16 10:03 15 MG Clopidogrel Bisulfate (plAVix TAB) 75 mg QAM PO 11/25/16 09:00 12/25/16 08:59 11/26/16 08:48 75 MG Duloxetine HCl (Cymbalta Cap) 120 mg QAM PO 11/25/16 09:00 12/25/16 08:59 11/26/16 08:49 120 MG Folic Acid (Folvite Tab) 1 mg QAM PO 11/25/16 09:00 12/25/16 08:59 11/26/16 08:49 [address] [place] (Atrovent Hfa Inhaler) 1 puffs BID INH 11/24/16 21:00 12/24/16 20:59 11/26/16 08:49 1 PUFFS Levothyroxine Sodium (Synthroid Tab) 25 mcg DAILYBB PO 11/25/16 06:00 12/25/16 05:59 11/26/16 06:06 25 MCG Lisinopril (Zestril Tab) 10 mg QAM PO 11/25/16 09:00 12/25/16 08:59 Future hold Metoprolol Succinate (Toprol Xl Tab) 100 mg QAM PO 11/25/16 09:00 12/25/16 08:59 11/26/16 08:48 100 MG Ropinirole HCl (Requip Tab) 4 mg HS PO 11/24/16 21:00 12/24/16 20:59 11/25/16 21:42 4 MG Simvastatin (Zocor Tab) 40 mg HS PO 11/24/16 21:00 12/24/16 20:59 11/25/16 21:41 40 MG Tizanidine HCl (Zanaflex Tab) 4 mg Q8 PRN PO 11/24/16 14:15 12/24/16 14:14 Albuterol (Proair Hfa) 2 puffs QPM INH 11/24/16 21:00 12/24/16 20:59 11/25/16 20:44 2 PUFFS Miscellaneous (Iv Fluids Completed) 1 ea PRN PRN N/A 11/24/16 15:00 11/24/17 14:59 Hydralazine HCl (HydrALAZINE INJ) 10 mg Q6H PRN IV. 11/24/16 17:45 12/24/16 17:44 Trazodone HCl (Desyrel Tab) 150 mg HS PO 11/25/16 21:00 12/25/16 20:59 11/25/16 20:46 150 MG (Makenna Reed, KATY) Objective Vital Signs Date Time Temp Pulse Resp B/P Pulse Ox O2 Delivery O2 Flow Rate FiO2 11/26/16 09:14 94 Nasal Cannula 2.0 11/26/16 08:30 36.3 74 16 165/83 94 Nasal Cannula 2.0 11/26/16 08:10 Room Air 11/26/16 00:20 Nasal Cannula 2.0 11/25/16 22:48 96 Nasal Cannula 2.0 11/25/16 22:45 36.9 81 16 98/63 85 Room Air 11/25/16 22:05 Nasal Cannula 2.0 11/25/16 15:35 37.0 80 18 137/87 95 Nasal Cannula 2.0 11/25/16 11:34 37.1 86 14 148/84 95 Nasal Cannula 2.0 11/25/16 10:03 155/105 94 Nasal Cannula 2.0 (Makenna Reed, PA-C) Physical Exam General Appearance: no apparent distress Eyes: normal inspection, PERRL ENT: hearing grossly normal Neck: supple Respiratory/Chest: lungs clear, no respiratory distress, no accessory muscle use, + decreased breath sounds (throughout ) Cardiovascular: regular rate, rhythm, no edema Abdomen: normal bowel sounds, non tender, soft, + pertinent finding (lumbar support brace present ) Extremities: non-tender, no pedal edema, no calf tenderness Neurologic/Psychiatric: alert, normal mood/affect, oriented x 3 Skin: normal color, warm/dry, no rash (Makenna Reed ., WILL-C) Laboratory Results Last 24 Hours Test 11/26/16 05:50 White Blood Count 11.60 K/uL Red Blood Count 2.86 M/uL Hemoglobin 9.5 g/dL Hematocrit 27.4 % Mean Corpuscular Volume 95.8 fL Mean Corpuscular Hemoglobin 33.2 pg Mean Corpuscular Hemoglobin Concent 34.7 g/dl RDW Standard Deviation 45.3 fL RDW Coefficient of Variation 13.0 % Platelet Count 197 K/uL Mean Platelet Volume 9.7 fL Sodium Level 143 mmol/L Potassium Level 4.3 mmol/L Chloride Level 107 mmol/L Carbon Dioxide Level 29 mmol/L Anion Gap 7.0 mmol/L Blood Urea Nitrogen 26 mg/dl Creatinine 0.83 mg/dl Est Creatinine Clear Calc Drug Dose 68.8 ml/min Estimated GFR () 83.4 Estimated GFR (Non- 71.9 BUN/Creatinine Ratio 30.9 Random Glucose 145 mg/dl Calcium Level 8.6 mg/dl (Makenna Reed, PA-C) Assessment and Plan 71 y/o female with a history of HTN, HLD, CAD, VA, right ICA CVA in 2016, lung cancer, COPD, MADI, Sarmiento's esophagus, hypothyroidism, colon cancer, uterine cancer, anxiety and depression, insomnia, and restless leg syndrome who presents s/p L3-L5 laminectomy and fusion with Dr. Cline on 11/24 for medical management. -Pain management, DVT prophylaxis, and PT/OT as per primary team Hypoxia, likely secondary to atelectasis superimposed on chronic COPD -Continue O2 supplement PRN for hypoxia --When interviewing patient, 93% on RA -Reinforced incentive spirometry usage Anemia, likely secondary to acute blood loss s/p L3-L5 laminectomy and fusion -Hgb slowly trending downward, but stable- 9.5 on 11/26 -Continue to monitor, follow CBC CAD, h/o VA and CVA, HTN--HR and BP stable -Hold Lisinopril 10 mg PO qd until renal function checked/stable -- Resumed on 11/25 -Continue Toprol XL 100 mg PO qd, hold if SBP<100 or HR<60 -Continue Amlodipine 10 mg PO qd -Cover with Hydralazine 10 mg IV q6h prn SBP >180 -Resume Plavix when OK with primary team HLD -Continue Simvastatin 40 mg PO qhs COPD -Continue Atrovent 1 puff inh BID and ProAir 2 puffs inh qpm MADI--Pt does not use CPAP, does not want one ordered -Continue 3L NC qhs Sramiento's esophagus -Continue Protonix 40 mg PO qd Hypothyroidism -Continue Synthroid 25 mcg PO qd Anxiety and Depression -Continue Buspirone 15 mg PO BID -Continue Bupropion 100 mg PO BID and Duloxetine 120 mg PO qd Restless leg syndrome -Continue Requip 4 mg PO qhs DVT prophylaxis -As per primary team Code Status -Level I, FULL RESUSCITATION STATUS Dispo -Discharge as per primary team Thank you for this consultation. We will continue to follow. (Makenna Reed ., PA-C) i personally examined pt and verified all pascual points w Rebecca Reed PAC no complaints except for noting that dr cline told her "after he was in my back , he wondered how i ever tolerated the pain" and then notes that previous docs she was seeing didn't want to give her pain meds. on directed questioning, no sob. vitals noted nad breathing unlabored, decreased BS globally but no r/r/w good effort hypoxia - improved. now up to 96% on RA by my check. otherwise as above (Barry Rhodes D.O.)
[2016-11-26 12:39] VITALS: BP 148/79; PULSE 73; TEMP 36.7; O2SAT 95
--- NOTE | 2016-11-26 14:10 | DISCHARGE SUMMARY ---
DATE OF DISCHARGE: 11/26/2016. SUBJECTIVE: Minimal complaints of pain. Alert, oriented, no shortness of breath, chest pain, no paralysis. No nausea. OBJECTIVE: Hemoglobin 9.5. Vital signs stable. Moves all 4 extremities. ASSESSMENT: Status post lumbar spine decompression, laminectomy and fusion L3-5. DISPOSITION: Will change her dressing here this morning, pull her Hemovac drain. We are going to discharge her to [facility] in approximately 4 hours. She should keep her wound clean and dry at all times. I recommend changing this only every 48 hours. Up and ambulatory twice a day. Careful with bending, stooping and lifting. I would recommend but not mandatory that she wears her back brace for support when she is up and walking, but once again it is not mandatory. I should see her back in the office in approximately 2 weeks. Her moises and wound again should be kept clean and dry. Continue medication including oxycodone for pain on a p.r.n. basis. If she is up and ambulatory and doing well she does not need the KARYN support stockings. Please call if there are any problems with the patient at [facility] [phone].
[2016-11-26 15:25] VITALS: BP 118/73; PULSE 68; TEMP 37; O2SAT 94
[2016-11-26 15:26] VITALS: BP 164/84; PULSE 72; TEMP 36.7; O2SAT 94
[2016-11-26] MEDS: ALBUTEROL HFA INHALER 8.5 GM INH SCH (20:54)
[2016-11-26] MEDS: ROPINIROLE HCL 1 MG TAB PO SCH (20:55)
[2016-11-26] MEDS: TRAZODONE HCL 100 MG TAB PO SCH (20:57)
[2016-11-26] MEDS: SIMVASTATIN 40 MG TAB PO SCH (20:58)
[2016-11-26 23:00] VITALS: BP 95/56; PULSE 67; TEMP 36.6; O2SAT 97
[2016-11-27] MEDS: LEVOTHYROXINE 25 MCG TAB PO SCH (05:29)
[2016-11-27 05:54] LABS: HEMATOCRIT 26.9 % (37-47); MEAN CELL VOLUME 96.4 fL (80-100); MEAN CORPUSCULAR HEMOGLOBIN 32.6 pg (25-34); MEAN CORPUSCULAR HGB CONC 33.8 g/dl (32-36); MEAN PLATELET VOLUME 9.9 fL (7.4-10.4); PLATELET COUNT 193 K/uL (130-400); RED BLOOD COUNT 2.79 M/uL (4.2-5.4); WHITE BLOOD COUNT 9.38 K/uL (4.8-10.8)
[2016-11-27 06:24] LABS: BUN/CREATININE RATIO 30.5 (10-20); CALCIUM 8.2 mg/dl (8.5-10.1); CREATININE 0.82 mg/dl (0.60-1.20); POTASSIUM 4.3 mmol/L (3.5-5.1)
[2016-11-27 07:00] VITALS: BP 121/64; PULSE 64; TEMP 36.7; O2SAT 97
[2016-11-27 08:00] VITALS: O2SAT 97
[2016-11-27] MEDS: IPRATROPIUM BROMIDE HFA INHALER INH SCH ×2 (08:05→19:52)
[2016-11-27] MEDS: CLOPIDOGREL BISULFATE 75 MG TAB PO SCH (08:06)
[2016-11-27] MEDS: OXYCODONE/ACETAMINOPHEN 5-325 TAB PO PRN ×3 (08:06→19:51)
[2016-11-27] MEDS: METOPROLOL SUCC 50MG EXT REL TAB PO SCH (08:06)
[2016-11-27] MEDS: AMLODIPINE BESYLATE 5 MG TAB PO SCH (08:06)
[2016-11-27] MEDS: BuPROPion SR 100 MG TABCR PO SCH ×2 (08:06→19:54)
[2016-11-27] MEDS: BusPIRone 15 MG TAB PO SCH ×2 (08:07→19:55)
[2016-11-27] MEDS: DULOXETINE HCL 60 MG CAP PO SCH (08:07)
[2016-11-27] MEDS: POLYETHYLENE (MIRALAX) 17 GM PACK PO SCH (08:07)
--- NOTE | 2016-11-27 08:38 | Hospitalist Progress Note ---
Hospitalist Progress Note Date of Service Nov 27, 2016. Subjective Pt evaluation today including: conversation w/ patient, physical exam, chart review, lab review, review of inpatient medication list Voiding: no voiding problems, no incontinence Patient states she is feeling well. Pain 7/10. No passing gas/BM postop. She is eating and drinking OK. Patient denies any fever, chills, sweats, lightheadedness, dizziness, vision changes, CP, palpitations, edema, SOB, wheezing, cough, abdominal pain, nausea, vomiting, diarrhea, urinary symptoms, melena, numbness/tingling, weakness, anxiety/depression, active bleeding, or new skin discoloration/changes. Medications Current Inpatient Medications Medications (Trade) Dose Ordered Sig/Fran Route Start Time Stop Time Status Last Admin Dose Admin Acetaminophen (Tylenol Tab) 650 mg Q6H PRN PO 11/24/16 14:00 12/24/16 13:59 Hydromorphone HCl (Dilaudid Inj) 1 mg Q3H PRN IV 11/25/16 08:00 12/09/16 07:59 11/25/16 09:23 1 MG Hydromorphone HCl 1.5 mg 1.5 mg Q3H PRN IV 11/25/16 08:00 12/09/16 07:59 Promethazine HCl/ Sodium Chloride (Phenergan Inj/ Nss 50ml) 50.5 ml @ 202 mls/hr Q6H PRN IV 11/24/16 14:00 12/24/16 13:59 Ondansetron HCl (Zofran Inj) 4 mg Q6H PRN IV 11/24/16 14:00 12/24/16 13:59 Metoclopramide HCl (Reglan Inj) 10 mg Q6H PRN IV 11/24/16 14:00 12/24/16 13:59 Polyethylene (Miralax Powder Packet) 17 gm DAILY PO 11/25/16 09:00 12/25/16 08:59 11/27/16 08:07 17 GM Bisacodyl (Dulcolax Tab) 5 mg DAILY PRN PO 11/25/16 06:00 12/25/16 05:59 Bisacodyl (Dulcolax Supp) 10 mg DAILY PRN AK 11/25/16 06:00 12/25/16 05:59 Magnesium Hydroxide (Milk Of Magnesia Susp) 30 ml DAILY PRN PO 11/24/16 14:00 12/24/16 13:59 Diphenhydramine HCl (Benadryl Cap) 25 mg Q6H PRN PO 11/24/16 14:00 12/24/16 13:59 11/26/16 19:20 25 MG Oxycodone/ Acetaminophen (Percocet 5-325MG Tab) 1 tab Q4H PRN PO 11/24/16 14:00 12/08/16 13:59 Oxycodone/ Acetaminophen (Percocet 5-325MG Tab) 2 tab Q4H PRN PO 11/24/16 14:00 12/08/16 13:59 11/27/16 08:06 2 TAB Amlodipine Besylate (Norvasc Tab) 10 mg QAM PO 11/25/16 09:00 12/25/16 08:59 11/27/16 08:06 10 MG Bupropion HCl (Wellbutrin-Sr Tab) 100 mg BID PO 11/24/16 21:00 12/24/16 20:59 11/27/16 08:06 100 MG Buspirone HCl (BusPAR TAB) 15 mg BID PO 11/24/16 21:00 12/24/16 20:59 11/27/16 08:07 15 MG Clopidogrel Bisulfate (plAVix TAB) 75 mg QAM PO 11/25/16 09:00 12/25/16 08:59 11/27/16 08:06 75 MG Duloxetine HCl (Cymbalta Cap) 120 mg QAM PO 11/25/16 09:00 12/25/16 08:59 11/27/16 08:07 120 MG Folic Acid (Folvite Tab) 1 mg QAM PO 11/25/16 09:00 12/25/16 08:59 11/27/16 08:07 1 MG Ipratropium [place] (Atrovent Hfa Inhaler) 1 puffs BID INH 11/24/16 21:00 12/24/16 20:59 11/27/16 08:05 1 PUFFS Levothyroxine Sodium (Synthroid Tab) 25 mcg DAILYBB PO 11/25/16 06:00 12/25/16 05:59 11/27/16 05:29 25 MCG Lisinopril (Zestril Tab) 10 mg QAM PO 11/25/16 09:00 12/25/16 08:59 Future hold 11/26/16 11:36 10 MG Metoprolol Succinate (Toprol Xl Tab) 100 mg QAM PO 11/25/16 09:00 12/25/16 08:59 11/27/16 08:06 100 MG Ropinirole HCl (Requip Tab) 4 mg HS PO 11/24/16 21:00 12/24/16 20:59 11/26/16 20:55 4 MG Simvastatin (Zocor Tab) 40 mg HS PO 11/24/16 21:00 12/24/16 20:59 11/26/16 20:58 40 MG Tizanidine HCl (Zanaflex Tab) 4 mg Q8 PRN PO 11/24/16 14:15 12/24/16 14:14 Albuterol (Proair Hfa) 2 puffs QPM INH 11/24/16 21:00 12/24/16 20:59 11/26/16 20:54 2 PUFFS Miscellaneous (Iv Fluids Completed) 1 ea PRN PRN N/A 11/24/16 15:00 11/24/17 14:59 Hydralazine HCl (HydrALAZINE INJ) 10 mg Q6H PRN IV. 11/24/16 17:45 12/24/16 17:44 Trazodone HCl (Desyrel Tab) 150 mg HS PO 11/25/16 21:00 12/25/16 20:59 11/26/16 20:57 150 MG Objective Vital Signs Date Time Temp Pulse Resp B/P Pulse Ox O2 Delivery O2 Flow Rate FiO2 11/27/16 07:00 36.7 64 16 121/64 97 Nasal Cannula 2.0 11/27/16 00:10 Nasal Cannula 11/26/16 23:00 36.6 67 17 95/56 97 Nasal Cannula 2.0 11/26/16 16:30 Room Air 11/26/16 15:26 36.7 72 20 164/84 94 Room Air 11/26/16 15:25 37.0 68 16 118/73 94 Room Air 11/26/16 12:39 36.7 73 16 148/79 95 Room Air 11/26/16 09:14 94 Nasal Cannula 2.0 Physical Exam General Appearance: no apparent distress Eyes: normal inspection, PERRL ENT: hearing grossly normal Neck: supple Respiratory/Chest: no respiratory distress, no accessory muscle use, + decreased breath sounds Cardiovascular: regular rate, rhythm, no edema Abdomen: normal bowel sounds, non tender, soft Extremities: no pedal edema, no calf tenderness Neurologic/Psychiatric: alert, normal mood/affect, oriented x 3 Skin: normal color, warm/dry, no rash Laboratory Results Last 24 Hours Test 11/27/16 05:20 White Blood Count 9.38 K/uL Red Blood Count 2.79 M/uL Hemoglobin 9.1 g/dL Hematocrit 26.9 % Mean Corpuscular Volume 96.4 fL Mean Corpuscular Hemoglobin 32.6 pg Mean Corpuscular Hemoglobin Concent 33.8 g/dl RDW Standard Deviation 45.9 fL RDW Coefficient of Variation 13.1 % Platelet Count 193 K/uL Mean Platelet Volume 9.9 fL Sodium Level 145 mmol/L Potassium Level 4.3 mmol/L Chloride Level 109 mmol/L Carbon Dioxide Level 30 mmol/L Anion Gap 6.0 mmol/L Blood Urea Nitrogen 25 mg/dl Creatinine 0.82 mg/dl Est Creatinine Clear Calc Drug Dose 69.7 ml/min Estimated GFR () 84.6 Estimated GFR (Non- 73.0 BUN/Creatinine Ratio 30.5 Random Glucose 87 mg/dl Calcium Level 8.2 mg/dl Assessment and Plan 71 y/o female with a history of HTN, HLD, CAD, VA, right ICA CVA in 2016, lung cancer, COPD, MADI, Sarmiento's esophagus, hypothyroidism, colon cancer, uterine cancer, anxiety and depression, insomnia, and restless leg syndrome who presents s/p L3-L5 laminectomy and fusion with Dr. Cline on 11/24 for medical management. -Pain management, DVT prophylaxis, and PT/OT as per primary team Hypoxia, likely secondary to atelectasis superimposed on chronic COPD -Continue O2 supplement PRN for hypoxia --When interviewing patient, 93% on RA on 11/26 -Reinforced incentive spirometry usage Anemia, likely secondary to acute blood loss s/p L3-L5 laminectomy and fusion -Hgb slowly trending downward, but stable- 9.1 on 11/27 -Continue to monitor, follow CBC CAD, h/o VA and CVA, HTN--HR and BP stable -Hold Lisinopril 10 mg PO qd until renal function checked/stable -- Resumed on 11/25 -Continue Toprol XL 100 mg PO qd, hold if SBP<100 or HR<60 -Continue Amlodipine 10 mg PO qd -Cover with Hydralazine 10 mg IV q6h prn SBP >180 -Resume Plavix when OK with primary team HLD -Continue Simvastatin 40 mg PO qhs COPD -Continue Atrovent 1 puff inh BID and ProAir 2 puffs inh qpm MADI--Pt does not use CPAP, does not want one ordered -Continue 3L NC qhs Sramiento's esophagus -Continue Protonix 40 mg PO qd Hypothyroidism -Continue Synthroid 25 mcg PO qd Anxiety and Depression -Continue Buspirone 15 mg PO BID -Continue Bupropion 100 mg PO BID and Duloxetine 120 mg PO qd Restless leg syndrome -Continue Requip 4 mg PO qhs GI Prophylaxis: -Miralax daily -Colace and/or Milk of Mag PRN DVT prophylaxis -As per primary team Code Status -Level I, FULL RESUSCITATION STATUS Dispo -Discharge as per primary team. Pending [facility] approval. Thank you for this consultation. We will continue to follow.
[2016-11-27] MEDS: LISINOPRIL 10 MG TAB PO SCH (09:24)
[2016-11-27 15:00] VITALS: BP 94/70; PULSE 68; TEMP 36.6; O2SAT 93
[2016-11-27] MEDS: ALBUTEROL HFA INHALER 8.5 GM INH SCH (19:51)
[2016-11-27] MEDS: ROPINIROLE HCL 1 MG TAB PO SCH (19:53)
[2016-11-27] MEDS: TRAZODONE HCL 100 MG TAB PO SCH (19:54)
[2016-11-27] MEDS: SIMVASTATIN 40 MG TAB PO SCH (19:55)
[2016-11-27 22:49] VITALS: BP 102/62; PULSE 68; TEMP 36.6; O2SAT 93
[2016-11-28 05:20] LABS: HEMATOCRIT 27.6 % (37-47); MEAN CELL VOLUME 95.8 fL (80-100); MEAN CORPUSCULAR HEMOGLOBIN 32.3 pg (25-34); MEAN CORPUSCULAR HGB CONC 33.7 g/dl (32-36); MEAN PLATELET VOLUME 9.3 fL (7.4-10.4); PLATELET COUNT 193 K/uL (130-400); RED BLOOD COUNT 2.88 M/uL (4.2-5.4); WHITE BLOOD COUNT 6.63 K/uL (4.8-10.8)
[2016-11-28 05:44] LABS: BUN/CREATININE RATIO 24.2 (10-20); CALCIUM 8.2 mg/dl (8.5-10.1); CREATININE 1.1 mg/dl (0.60-1.20); POTASSIUM 4.5 mmol/L (3.5-5.1)
[2016-11-28] MEDS: LEVOTHYROXINE 25 MCG TAB PO SCH (05:48)
[2016-11-28] MEDS: OXYCODONE/ACETAMINOPHEN 5-325 TAB PO PRN ×3 (05:48→20:38)
[2016-11-28 06:27] VITALS: BP 113/67; PULSE 68; TEMP 36.7; O2SAT 99
[2016-11-28] MEDS: IPRATROPIUM BROMIDE HFA INHALER INH SCH ×2 (07:52→20:35)
[2016-11-28] MEDS: POLYETHYLENE (MIRALAX) 17 GM PACK PO SCH (07:53)
[2016-11-28] MEDS: DULOXETINE HCL 60 MG CAP PO SCH (07:53)
[2016-11-28] MEDS: AMLODIPINE BESYLATE 5 MG TAB PO SCH (07:54)
[2016-11-28] MEDS: METOPROLOL SUCC 50MG EXT REL TAB PO SCH (07:54)
[2016-11-28] MEDS: CLOPIDOGREL BISULFATE 75 MG TAB PO SCH (07:54)
[2016-11-28] MEDS: BuPROPion SR 100 MG TABCR PO SCH ×2 (07:54→20:36)
[2016-11-28] MEDS: BusPIRone 15 MG TAB PO SCH ×2 (07:55→20:36)
[2016-11-28] MEDS: LISINOPRIL 10 MG TAB PO SCH (07:55)
--- NOTE | 2016-11-28 13:27 | Hospitalist Progress Note ---
Hospitalist Progress Note Date of Service Nov 28, 2016. (Makenna Reed ., DIMITRYC) Subjective Pt evaluation today including: conversation w/ patient, physical exam, chart review, lab review, review of inpatient medication list Voiding: no voiding problems, no incontinence Patient states she is feeling well. Pain 7/10. She has been up and walking more , without significant difficulty. +passing gas, no BM postop. She is eating and drinking OK. Patient denies any fever, chills, sweats, lightheadedness, dizziness, vision changes, CP, palpitations, edema, SOB, wheezing, cough, abdominal pain, nausea, vomiting, diarrhea, urinary symptoms, melena, numbness/ tingling, weakness, anxiety/depression, active bleeding, or new skin discoloration/changes. (Makenna Reed ., WILL-C) Medications Current Inpatient Medications Medications (Trade) Dose Ordered Sig/Fran Route Start Time Stop Time Status Last Admin Dose Admin Acetaminophen (Tylenol Tab) 650 mg Q6H PRN PO 11/24/16 14:00 12/24/16 13:59 11/27/16 16:39 650 MG Hydromorphone HCl (Dilaudid Inj) 1 mg Q3H PRN IV 11/25/16 08:00 12/09/16 07:59 11/25/16 09:23 1 MG Hydromorphone HCl 1.5 mg 1.5 mg Q3H PRN IV 11/25/16 08:00 12/09/16 07:59 Promethazine HCl/ Sodium Chloride (Phenergan Inj/ Nss 50ml) 50.5 ml @ 202 mls/hr Q6H PRN IV 11/24/16 14:00 12/24/16 13:59 Ondansetron HCl (Zofran Inj) 4 mg Q6H PRN IV 11/24/16 14:00 12/24/16 13:59 Metoclopramide HCl (Reglan Inj) 10 mg Q6H PRN IV 11/24/16 14:00 12/24/16 13:59 Polyethylene (Miralax Powder Packet) 17 gm DAILY PO 11/25/16 09:00 12/25/16 08:59 11/28/16 07:53 17 GM Bisacodyl (Dulcolax Tab) 5 mg DAILY PRN PO 11/25/16 06:00 2/12/17 05:59 Bisacodyl (Dulcolax Supp) 10 mg DAILY PRN [place] 11/25/16 06:00 12/25/16 05:59 Magnesium Hydroxide (Milk Of Magnesia Susp) 30 ml DAILY PRN PO 11/24/16 14:00 12/24/16 13:59 Diphenhydramine HCl (Benadryl Cap) 25 mg Q6H PRN PO 11/24/16 14:00 12/24/16 13:59 11/26/16 19:20 25 MG Oxycodone/ Acetaminophen (Percocet 5-325MG Tab) 1 tab Q4H PRN PO 11/24/16 14:00 12/08/16 13:59 Oxycodone/ Acetaminophen (Percocet 5-325MG Tab) 2 tab Q4H PRN PO 11/24/16 14:00 12/08/16 13:59 11/28/16 05:48 2 TAB Amlodipine Besylate (Norvasc Tab) 10 mg QAM PO 11/25/16 09:00 12/25/16 08:59 11/28/16 07:54 10 MG Bupropion HCl (Wellbutrin-Sr Tab) 100 mg BID PO 11/24/16 21:00 12/24/16 20:59 11/28/16 07:54 100 MG Buspirone HCl (BusPAR TAB) 15 mg BID PO 11/24/16 21:00 12/24/16 20:59 11/28/16 07:55 15 MG Clopidogrel Bisulfate (plAVix TAB) 75 mg QAM PO 11/25/16 09:00 12/25/16 08:59 11/28/16 07:54 75 MG Duloxetine HCl (Cymbalta Cap) 120 mg QAM PO 11/25/16 09:00 12/25/16 08:59 11/28/16 07:53 120 MG Folic Acid (Folvite Tab) 1 mg QAM PO 11/25/16 09:00 12/25/16 08:59 11/28/16 07:53 1 MG Ipratropium [place] (Atrovent Hfa Inhaler) 1 puffs BID INH 11/24/16 21:00 12/24/16 20:59 11/28/16 07:52 1 PUFFS Levothyroxine Sodium (Synthroid Tab) 25 mcg DAILYBB PO 11/25/16 06:00 12/25/16 05:59 11/28/16 05:48 25 MCG Lisinopril (Zestril Tab) 10 mg QAM PO 11/25/16 09:00 12/25/16 08:59 Future hold 11/28/16 07:55 10 MG Metoprolol Succinate (Toprol Xl Tab) 100 mg QAM PO 11/25/16 09:00 12/25/16 08:59 11/28/16 07:54 100 MG Ropinirole HCl (Requip Tab) 4 mg HS PO 11/24/16 21:00 12/24/16 20:59 11/27/16 19:53 4 MG Simvastatin (Zocor Tab) 40 mg HS PO 11/24/16 21:00 12/24/16 20:59 11/27/16 19:55 40 MG Tizanidine HCl (Zanaflex Tab) 4 mg Q8 PRN PO 11/24/16 14:15 12/24/16 14:14 Albuterol (Proair Hfa) 2 puffs QPM INH 11/24/16 21:00 12/24/16 20:59 11/27/16 19:51 2 PUFFS Miscellaneous (Iv Fluids Completed) 1 ea PRN PRN N/A 11/24/16 15:00 11/24/17 14:59 Hydralazine HCl (HydrALAZINE INJ) 10 mg Q6H PRN IV. 11/24/16 17:45 12/24/16 17:44 Trazodone HCl (Desyrel Tab) 150 mg HS PO 11/25/16 21:00 12/25/16 20:59 11/27/16 19:54 150 MG (Makenna Reed, KATY) Objective Vital Signs Date Time Temp Pulse Resp B/P Pulse Ox O2 Delivery O2 Flow Rate FiO2 11/28/16 08:15 Room Air 11/28/16 06:27 36.7 68 16 113/67 99 Nasal Cannula 3.0 11/27/16 22:49 36.6 68 16 102/62 93 Room Air 11/27/16 16:30 Room Air 11/27/16 15:00 36.6 68 18 94/70 93 Room Air (Makenna Reed ., PA-C) Physical Exam General Appearance: no apparent distress Eyes: normal inspection, PERRL ENT: hearing grossly normal Neck: supple Respiratory/Chest: no respiratory distress, no accessory muscle use, + decreased breath sounds Cardiovascular: regular rate, rhythm Abdomen: normal bowel sounds, non tender, soft Extremities: normal range of motion, no calf tenderness, + pertinent finding ( TEDs on ) Neurologic/Psychiatric: alert, normal mood/affect, oriented x 3 Skin: normal color, warm/dry, no rash (Makenna Reed ., PA-C) Laboratory Results Last 24 Hours Test 11/28/16 05:10 White Blood Count 6.63 K/uL Red Blood Count 2.88 M/uL Hemoglobin 9.3 g/dL Hematocrit 27.6 % Mean Corpuscular Volume 95.8 fL Mean Corpuscular Hemoglobin 32.3 pg Mean Corpuscular Hemoglobin Concent 33.7 g/dl RDW Standard Deviation 46.0 fL RDW Coefficient of Variation 13.2 % Platelet Count 193 K/uL Mean Platelet Volume 9.3 fL Sodium Level 144 mmol/L Potassium Level 4.5 mmol/L Chloride Level 105 mmol/L Carbon Dioxide Level 33 mmol/L Anion Gap 6.0 mmol/L Blood Urea Nitrogen 27 mg/dl Creatinine 1.10 mg/dl Est Creatinine Clear Calc Drug Dose 51.9 ml/min Estimated GFR () 59.3 Estimated GFR (Non- 51.2 BUN/Creatinine Ratio 24.2 Random Glucose 86 mg/dl Calcium Level 8.2 mg/dl (Makenna Reed ., PA-C) Assessment and Plan 71 y/o female with a history of HTN, HLD, CAD, NH, right ICA CVA in 2016, lung cancer, COPD, MADI, Sarmiento's esophagus, hypothyroidism, colon cancer, uterine cancer, anxiety and depression, insomnia, and restless leg syndrome who presents s/p L3-L5 laminectomy and fusion with Dr. Cline on 11/24 for medical management. -Pain management, DVT prophylaxis, and PT/OT as per primary team Hypoxia, likely secondary to atelectasis superimposed on chronic COPD -Continue O2 supplement PRN for hypoxia --When interviewing patient, 93% on RA on 11/26 -Reinforced incentive spirometry usage Anemia, likely secondary to acute blood loss s/p L3-L5 laminectomy and fusion -Stable- 9.3 on 11/28 -Continue to monitor, follow CBC CAD, h/o NH and CVA, HTN--HR and BP stable -Hold Lisinopril 10 mg PO qd until renal function checked/stable -- Resumed on 11/25 -Continue Toprol XL 100 mg PO qd, hold if SBP<100 or HR<60 -Continue Amlodipine 10 mg PO qd -Cover with Hydralazine 10 mg IV q6h prn SBP >180 -Resume Plavix when OK with primary team HLD -Continue Simvastatin 40 mg PO qhs COPD -Continue Atrovent 1 puff inh BID and ProAir 2 puffs inh qpm MADI--Pt does not use CPAP, does not want one ordered -Continue 3L NC qhs Sarmiento's esophagus -Continue Protonix 40 mg PO qd Hypothyroidism -Continue Synthroid 25 mcg PO qd Anxiety and Depression -Continue Buspirone 15 mg PO BID -Continue Bupropion 100 mg PO BID and Duloxetine 120 mg PO qd Restless leg syndrome -Continue Requip 4 mg PO qhs GI Prophylaxis: -Miralax daily -Colace and/or Milk of Mag PRN DVT prophylaxis -As per primary team Code Status -Level I, FULL RESUSCITATION STATUS Dispo -Discharge as per primary team. Pending [facility] approval. Thank you for this consultation. We will continue to follow. (Makenna Reed ., PA-C) Attending Attestation: Pt seen/examined, chart reviewed, and care plan d/w WILL Reed. I agree w/ the pascual components of her documentation. Pt w/o complaints during my visit; specifically denied any sob, orthopnea, pink, chest pain, abd pain. back pain is largely controlled. VSS, afebrile o2 sats acceptable in room air gen - nad, obese neck - no JVD mouth - MMM, no thrush heart - 1/6 LAURA LSB, RRR lungs - CTA b/l abd - soft, obese, NT ext - no edema labs cr 1.1 hb 9.3 A/P: 1. mild acute kidney injury - Cr 1.1, was 0.8; hold LUCIANO and repeat BMP in am. 2. mild acute blood loss anemia - ferrous sulfate BID-TID x 1-2 months. 3. COPD - stable and w/o exacerbation. other plans per Ms. Reed's documentation. Alcon BOGGS MD (Leo Boggs MD)
[2016-11-28 15:28] VITALS: BP 102/64; PULSE 64; TEMP 36.4; O2SAT 98
[2016-11-28] MEDS: ALBUTEROL HFA INHALER 8.5 GM INH SCH (20:35)
[2016-11-28] MEDS: SIMVASTATIN 40 MG TAB PO SCH (20:36)
[2016-11-28] MEDS: TRAZODONE HCL 100 MG TAB PO SCH (20:36)
[2016-11-28] MEDS: ROPINIROLE HCL 1 MG TAB PO SCH (20:37)
[2016-11-28 23:27] VITALS: BP 121/71; PULSE 66; TEMP 36.8; O2SAT 96
[2016-11-29] MEDS: OXYCODONE/ACETAMINOPHEN 5-325 TAB PO PRN ×2 (01:04→08:49)
[2016-11-29] MEDS: LEVOTHYROXINE 25 MCG TAB PO SCH (05:37)
[2016-11-29 06:20] VITALS: BP 102/64; PULSE 66; TEMP 36.4; O2SAT 94
[2016-11-29 07:02] LABS: HEMATOCRIT 29.7 % (37-47); MEAN CELL VOLUME 97.4 fL (80-100); MEAN CORPUSCULAR HEMOGLOBIN 32.1 pg (25-34); MEAN PLATELET VOLUME 9.7 fL (7.4-10.4); PLATELET COUNT 215 K/uL (130-400); RED BLOOD COUNT 3.05 M/uL (4.2-5.4); WHITE BLOOD COUNT 6.54 K/uL (4.8-10.8)
[2016-11-29 07:42] LABS: BUN/CREATININE RATIO 26.1 (10-20); CALCIUM 8.5 mg/dl (8.5-10.1); CREATININE 0.96 mg/dl (0.60-1.20); POTASSIUM 4.3 mmol/L (3.5-5.1)
--- NOTE | 2016-11-29 07:43 | DISCHARGE SUMMARY ---
SUBJECTIVE: Alert, oriented, minimal complaints of pain, no chest pain, shortness of breath. OBJECTIVE: Vital signs stable. Neurologically intact. Pain controlled. ASSESSMENT: Status post spinal decompression and fusion. DISPOSITION: Hopefully will discharge her to a rehab facility today. The discharge summary has already been dictated. She was ready to be discharged on Monday; stayed several extra days because of insurance issues. I should see her back in the office in approximately 2 weeks.
[2016-11-29] MEDS ORDERED: FERROUS SULFATE 325 MG TAB PO SCH (08:30)
[2016-11-29] MEDS: METOPROLOL SUCC 50MG EXT REL TAB PO SCH (08:36)
[2016-11-29] MEDS: CLOPIDOGREL BISULFATE 75 MG TAB PO SCH (08:36)
[2016-11-29] MEDS: DULOXETINE HCL 60 MG CAP PO SCH (08:36)
[2016-11-29] MEDS: BuPROPion SR 100 MG TABCR PO SCH (08:36)
[2016-11-29] MEDS: POLYETHYLENE (MIRALAX) 17 GM PACK PO SCH (08:36)
[2016-11-29] MEDS: AMLODIPINE BESYLATE 5 MG TAB PO SCH (08:37)
[2016-11-29] MEDS: IPRATROPIUM BROMIDE HFA INHALER INH SCH (08:38)
[2016-11-29] MEDS: BusPIRone 15 MG TAB PO SCH (08:38)
[2016-11-29] MEDS ORDERED: FRRG PO (10:29)
[2016-11-29] MEDS ORDERED: OMEP40CA41 PO (10:37)
--- NOTE | 2016-11-29 10:37 | Progress Note ---
Subjective Date of Service: Nov 29, 2016. Subjective Pt evaluation today including: conversation w/ patient, physical exam, chart review, lab review Pain: back PO Intake: had good breakfast Voiding: no voiding problems finally had another bowel movement this am denies chest pain or sob feels good with exception of back pain Problem List Medical Problems: (1) Altered mental status Status: Acute (2) Cellulitis of left foot Status: Acute (3) Overdose Status: Acute (4) Suicide gesture Status: Acute Review of Systems Respiratory: No cough, No shortness of breath Cardiac: No chest pain Abdomen: No constipation, No pain Objective Vital Signs Date Time Temp Pulse Resp B/P Pulse Ox O2 Delivery O2 Flow Rate FiO2 11/29/16 08:12 Room Air 11/29/16 06:20 36.4 66 18 102/64 94 Room Air 11/29/16 00:45 Nasal Cannula 3.0 11/28/16 23:27 36.8 66 18 121/71 96 Nasal Cannula 3.0 11/28/16 19:50 Nasal Cannula 3.0 11/28/16 15:28 36.4 64 20 102/64 98 Nasal Cannula 3.0 Physical Exam General Appearance: no apparent distress, + obese ENT: pharynx normal Neck: no JVD Respiratory/Chest: lungs clear, no respiratory distress, no accessory muscle use Cardiovascular: regular rate, rhythm, no gallop, + systolic murmur (1-2/6 LAURA LSB) Abdomen: normal bowel sounds, non tender, soft, no organomegaly Extremities: no pedal edema Neurologic/Psychiatric: alert, oriented x 3 Laboratory Results Last 24 Hours Test 11/29/16 06:42 White Blood Count 6.54 K/uL Red Blood Count 3.05 M/uL Hemoglobin 9.8 g/dL Hematocrit 29.7 % Mean Corpuscular Volume 97.4 fL Mean Corpuscular Hemoglobin 32.1 pg Mean Corpuscular Hemoglobin Concent 33.0 g/dl RDW Standard Deviation 47.6 fL RDW Coefficient of Variation 13.4 % Platelet Count 215 K/uL Mean Platelet Volume 9.7 fL Sodium Level 141 mmol/L Potassium Level 4.3 mmol/L Chloride Level 104 mmol/L Carbon Dioxide Level 29 mmol/L Anion Gap 8.0 mmol/L Blood Urea Nitrogen 25 mg/dl Creatinine 0.96 mg/dl Est Creatinine Clear Calc Drug Dose 59.5 ml/min Estimated GFR () 69.9 Estimated GFR (Non- 60.3 BUN/Creatinine Ratio 26.1 Random Glucose 93 mg/dl Calcium Level 8.5 mg/dl Assessment and Plan 71yo female with: 1. mild acute kidney injury - resolved. In light of low-normal BP would d/c LUCIANO inhibitor at discharge. 2. mild acute blood loss anemia - ferrous gluconate 325mg BID for 1-2 months. Repeat CBC 5 days for stability. 3. COPD - stable and w/o exacerbation. 4. HTN - d/c lisinopril; continue other outpatient meds. 5. HTN 6. CAD with h/o [place] - resume plavix when ok with primary spine team. Cont BB, statin. No ischemic symptoms. 7. h/o CVA in 2016 - no new neuro symptoms during this stay. 8. h/o lung cancer s/p lobectomy - 9. Sarmiento's esophagus - should be on PPI chronically for such. 10. hypothyroidism - cont synthroid. From medical standpoint can d/c to SNF today for rehab. Will add the iron and PPI to d/c med list. Stop the LUCIANO (lisinopril).
[2016-11-29 15:12] VITALS: BP 102/64; PULSE 66; TEMP 36.4; O2SAT 94
== END 2016-11-29 16:25 | DRG 516 ==
LOC: ENRESERVTM → ENRESERVDT → C.ACU 08:16 → C.3E 11:00 → OBSVTOIN 11:00
PROVIDERS: ADMIT Orthopaedic Surgery Orthopaedic Surgery of the Spine; ATTEND Orthopaedic Surgery Orthopaedic Surgery of the Spine
PROC: 01NB0ZZ Release Lumbar Nerve, Open Approach (ICD-10-PCS; principal; 2016-11-24 10:00)
DX: M43.16 Spondylolisthesis, lumbar region (principal); D62 Acute posthemorrhagic anemia; N17.9 Acute kidney failure, unspecified; M48.06 Spinal stenosis, lumbar region; F32.9 Major depressive disorder, single episode, unspecified; E78.00 Pure hypercholesterolemia, unspecified; E11.9 Type 2 diabetes mellitus without complications; I10 Essential (primary) hypertension; E03.9 Hypothyroidism, unspecified; Z86.73 Personal history of transient ischemic attack (TIA), and cerebral infarction without residual deficits; Z85.42 Personal history of malignant neoplasm of other parts of uterus; G25.81 Restless legs syndrome; K22.70 Barrett's esophagus without dysplasia; G47.33 Obstructive sleep apnea (adult) (pediatric); F41.9 Anxiety disorder, unspecified; R09.02 Hypoxemia; Z85.038 Personal history of other malignant neoplasm of large intestine; Z96.652 Presence of left artificial knee joint; Z85.118 Personal history of other malignant neoplasm of bronchus and lung

== ENCOUNTER → 2016-12-05 | Outpatient (CLI) | payer OTHER ==
[~2016-12-05] MED LIST changes: -Aspirin PO; -CEFAZOLIN 2000 MG/60 ML D5W 60 ML IV SCH; +CEPH500C PO; +DTRSR/10 PO; +FRRG PO; +HYDR-4079 PO; -LACTATED RINGER'S 1000ML IV SCH; +MULTTAB58 PO; +NITR-5 PO; -NSS 1000ML IV SCH; +OMEP40CA41 PO; +OXYC1TAB3 PO; +PRED20TA PO; +PRED50TA PO; +SULF800T23 PO
[2016-12-05 08:46] LABS: BLOOD UREA NITROGEN 13 mg/dl (7-18); BUN/CREATININE RATIO 15.6 (10-20); CALCIUM 8.9 mg/dl (8.5-10.1); CARBON DIOXIDE 24 mmol/L (21-32); CHLORIDE 111 mmol/L (98-107); CREATININE 0.84 mg/dl (0.60-1.20); GLUCOSE 83 mg/dl (70-99); POTASSIUM 4.1 mmol/L (3.5-5.1); SODIUM 145 mmol/L (136-145)
[2016-12-05 08:47] LABS: BASO % 0.2 %; BASO ABS # 0.01 K/uL (0-0.2); COMPLETE YES; EOS % 3.2 %; HEMATOCRIT 29.1 % (37-47); IG% 0.2 %; LYMPH ABS # 0.94 K/uL (1.2-3.4); MEAN CELL VOLUME 96.7 fL (80-100); MEAN CORPUSCULAR HEMOGLOBIN 32.2 pg (25-34); MEAN CORPUSCULAR HGB CONC 33.3 g/dl (32-36); MEAN PLATELET VOLUME 9.7 fL (7.4-10.4); MONO % 15.4 %; PLATELET COUNT 289 K/uL (130-400); RED BLOOD COUNT 3.01 M/uL (4.2-5.4); WHITE BLOOD COUNT 4.95 K/uL (4.8-10.8)
[2016-12-05 10:38] LABS: ESTIMATED AVERAGE GLUCOSE 100 mg/dl; HA1C FLAG Normal (Normal)
--- NOTE | 2016-12-09 13:31 | CODING QUERY MEDICAL NECESSITY ---
SUPPORTING DIAGNOSIS NEEDED Dr. Noel, A supporting diagnosis is required for the test/procedure performed on this patient in order for us to be reimbursed by the patient's insurance. Please provide a supporting diagnosis for the following test/procedure listed below next to the test name along with your signature. *If there is no additional diagnosis for this patient that would support the following test/procedure please document that below next to the test/procedure. Test(s)/Procedure(s) that require a supporting diagnosis: * 28101 GLYCATED HEMOGLOBIN DIAGNOSIS: DATE OF SERVICE: 12/05/16 Provider Signature: Date: Thank you Barak [facility] Information Management Once completed, please kindly fax back to [phone] For questions please call [phone]
== END ==
LOC: C.LABCC 08:23
PROVIDERS: ATTEND Internal Medicine
DX: I10 Essential (primary) hypertension (principal); E78.00 Pure hypercholesterolemia, unspecified; E03.9 Hypothyroidism, unspecified; R73.9 Hyperglycemia, unspecified

== ENCOUNTER → 2016-12-20 | Outpatient (CLI) | payer OTHER ==
[2016-12-20 18:12] LABS: HEMATOCRIT 35.2 % (37-47); MEAN CELL VOLUME 99.2 fL (80-100); MEAN CORPUSCULAR HEMOGLOBIN 32.4 pg (25-34); MEAN CORPUSCULAR HGB CONC 32.7 g/dl (32-36); MEAN PLATELET VOLUME 9.8 fL (7.4-10.4); PLATELET COUNT 337 K/uL (130-400); RED BLOOD COUNT 3.55 M/uL (4.2-5.4); WHITE BLOOD COUNT 5.08 K/uL (4.8-10.8)
== END | disposition home or self-care (01) ==
LOC: C.LABSPEC 17:46
PROVIDERS: ATTEND Orthopaedic Surgery Orthopaedic Surgery of the Spine
DX: D64.9 Anemia, unspecified (principal); J44.9 Chronic obstructive pulmonary disease, unspecified; I10 Essential (primary) hypertension; F32.9 Major depressive disorder, single episode, unspecified; F41.9 Anxiety disorder, unspecified; Z79.02 Long term (current) use of antithrombotics/antiplatelets; Z79.899 Other long term (current) drug therapy

== ENCOUNTER → 2016-12-28 | Outpatient (CLI) | payer OTHER ==
[2016-12-28 12:53] LABS: BASO % 0.9 %; BASO ABS # 0.06 K/uL (0-0.2); COMPLETE YES; EOS % 3.6 %; HEMATOCRIT 35.9 % (37-47); IG% 0.5 %; LYMPH % 23.8 %; LYMPH ABS # 1.58 K/uL (1.2-3.4); MEAN CORPUSCULAR HEMOGLOBIN 31.7 pg (25-34); MEAN CORPUSCULAR HGB CONC 33.4 g/dl (32-36); MEAN PLATELET VOLUME 9.5 fL (7.4-10.4); MONO % 9.8 %; NEUT % 61.4 %; PLATELET COUNT 304 K/uL (130-400); RED BLOOD COUNT 3.78 M/uL (4.2-5.4); WHITE BLOOD COUNT 6.63 K/uL (4.8-10.8)
[2016-12-28 13:23] LABS: ALT/SGPT 19 U/L (12-78); AST/SGOT 14 U/L (15-37); BLOOD UREA NITROGEN 17 mg/dl (7-18); BUN/CREATININE RATIO 18.5 (10-20); CALCIUM 9.2 mg/dl (8.5-10.1); CARBON DIOXIDE 29 mmol/L (21-32); CHLORIDE 108 mmol/L (98-107); GLUCOSE 89 mg/dl (70-99); POTASSIUM 4.3 mmol/L (3.5-5.1); SODIUM 144 mmol/L (136-145)
[2016-12-28 13:34] LABS: ALB/GLOB RATIO 0.9 (0.9-2); ALKALINE PHOSPHATASE 106 U/L (45-117); CHOLESTEROL 146 mg/dl (0-200); FERRITIN 42.6 ng/ml (8.0-388.0); HDL CHOLESTEROL 73 mg/dl; LDL CHOLESTEROL CALCULATED 52 mg/dl; TRIGLYCERIDES 107 mg/dl (0-150); VERY LOW DENSITY LIPOPROT CALC 21 mg/dl
== END | disposition home or self-care (01) ==
LOC: C.LABBFT 11:32
PROVIDERS: ATTEND Nurse Practitioner
DX: I25.10 Atherosclerotic heart disease of native coronary artery without angina pectoris (principal); E03.9 Hypothyroidism, unspecified; D62 Acute posthemorrhagic anemia

== ENCOUNTER 2017-01-28 07:16 | Emergency (ER) | payer OTHER ==
[~2017-01-28] VITALS: Ht 157.5 cm; Wt 96.4 kg
[~2017-01-28 07:16] MED LIST changes: -CEPH500C PO; -DTRSR/10 PO; -HYDR-4079 PO; -LISI-461 PO; -MULTTAB58 PO; -NITR-5 PO; -OXYC1TAB3 PO; -PRED20TA PO; -PRED50TA PO; -SULF800T23 PO
[2017-01-28 07:22] VITALS: TEMP 36.8; Ht 157.5 cm; Wt 96.4 kg
[2017-01-28] MEDS ORDERED: SODIUM CHLORIDE 0.9% 500ML 500 ML IV STA (07:42)
[2017-01-28] MEDS ORDERED: MoRPHine SULFATE 4 MG/ML 1 ML CARP\\VIAL IV STA (07:42)
--- NOTE | 2017-01-28 08:03 | DIAGNOSTIC IMAGING REPORT ---
CHEST ONE VIEW PORTABLE CLINICAL HISTORY: chest pain COMPARISON STUDY: 07/20/2016 FINDINGS: Stable fullness left hilum with left apical fibrotic change. Stable blunting left lateral gastric angle. No acute or interval process. IMPRESSION: Stable postoperative and chronic change left hemithorax. No acute process. Electronically signed by: Teodoro Mota M.D. 01/28/2017 8:01 AM Dictated Date/Time: 01/28/2017 8:00 AM
--- NOTE | 2017-01-28 08:04 | EMERGENCY ROOM VISIT NOTE ---
History First contact with patient: 07:25 Chief Complaint: BACK PAIN Stated Complaint: BACK PAIN History of Present Illness The patient is a 71 year old female who presents to the Emergency Room with complaints of pain. The patient states that she had surgery November [address] Cline. She underwent L3 through L5 laminectomy. The patient states that she has had pain since the surgery. She states that she had a follow-up appointment with Dr. Cline yesterday but did not go because she does not want to see him. She states that he was meza with her about quitting smoking. The patient states the pain worsened over the last 2 days. The patient saw a chiropractor yesterday. She states the pain is diffuse through the entire spine. She rates her discomfort a 10/10. She denies any fevers. She denies any worsening shortness of breath. She denies any abdominal pain or vomiting. She states the pain radiates to both thighs but not further. She has had some stress incontinence that has been ongoing for months but is not changed. She denies any weakness in the lower extremities. She does have a history of lung cancer and colon cancer. She states that it was not metastasis and was treated only with surgery. She is not currently on chemotherapy or radiation. Review of Systems A 10 system review of systems was completed with positives and pertinent negatives listed in the HPI. Past Medical/Surgical History Medical Problems: (1) Altered mental status (2) CAD (coronary artery disease) (3) Cerebral vascular accident (4) Degenerative disc disease (5) Dyslipidemia (6) Hypertension (7) Lumbar stenosis (8) Lung cancer (9) Panic disorder without agoraphobia (10) Restless leg syndrome (11) Suicidal ideation (12) Tobacco use disorder Surgical Problems: (1) No pertinent past surgical history Family History Colon cancer Depression Social History Smoking Status: Current Every Day Smoker Alcohol Use: none Drug Use: none Marital Status: Housing Status: lives with family Occupation Status: retired Current/Historical Medications Scheduled Albuterol Sulfate (Proair Respiclick), 2 PUFFS INH QPM Amlodipine Besylate (Norvasc), 10 MG PO QAM Bupropion Hcl (Bupropion Hcl Er), 1 TAB PO BID Buspirone Hcl (Buspar), 15 MG PO BID Cephalexin Monohydrate (Keflex), 500 MG PO QID Clopidogrel Bisulfate (Clopidogrel), 75 MG PO QAM Duloxetine HCl (Duloxetine HCl), 120 MG PO QAM Ferrous Gluconate (Ferrous Gluconate), 324 MG PO BID Folic Acid (Folvite), 1 MG PO QAM Ipratropium [place] (Atrovent Hfa), 1 PUFFS INH BID Levothyroxine Sodium (Synthroid), 25 MCG PO QAM Meloxicam (Meloxicam), 1 TAB PO QAM Metoprolol Succ (Toprol Xl) (Toprol-Xl ), 100 MG PO QAM Omeprazole (Prilosec), 40 MG PO DAILY Oxygen (Oxygen), 3 LITERS NA HS Ropinirole (Requip), 4 MG PO HS Simvastatin (Simvastatin), 1 TAB PO HS Sulfa/Trimethoprim (Bactrim Ds 800MG/160MG), 1 TAB PO BID Trazodone HCl (Trazodone HCl), 2 TAB PO HS Scheduled PRN Oxycodone Ir (Roxicodone Ir), 1 TAB PO Q6 PRN for Pain Tizanidine (Zanaflex ), 4 MG PO Q8 PRN for Anxiety Allergies Coded Allergies: Aspirin (Unverified Allergy, Mild, Stomach Pain/Cramping, 01/28/17) Chlorzoxazone (Unverified Allergy, Unknown, DIZZINESS, BALANCE ISSUES , ) Meperidine (Unverified Allergy, Unknown, VOMITING,FAINTING, 01/28/17) Diazepam (Unverified Adverse Reaction, Severe, Suicidal Thoughts, 01/28/17) Fluoxetine (Unverified Adverse Reaction, Mild, Uncontrollable Crying, 01/28) Gabapentin (Verified Adverse Reaction, Unknown, COMBATIVENESS , 01/28/17) Pregabalin (Unverified Adverse Reaction, Unknown, HALLUCINATIONS, 01/28/17) Uncoded Allergies: PEANUTS/PEANUT BUTTER (Adverse Reaction, Mild, RASH, 11/26/16) NO RASH NOTED; PT COMPLAINS OF SEVERE ITCHINESS Physical Exam Vital Signs Date Time Temp Pulse Resp B/P Pulse Ox O2 Delivery O2 Flow Rate FiO2 01/28/17 12:58 88 18 127/84 98 01/28/17 11:04 88 18 149/80 96 Room Air 01/28/17 08:28 98 18 159/88 96 Room Air 01/28/17 08:25 95 01/28/17 07:22 36.8 94 18 183/103 96 Room Air Physical Exam VITALS: Vitals are noted on the nurse's note and reviewed by myself. Vital signs stable. The patient is afebrile. GENERAL: This is a 71-year-old female, who is tearful and crying out, nondiaphoretic, well-developed well-nourished. SKIN: There is a small ulcerated area to the left anterior lower extremity with mild surrounding erythema. There is no fluctuance or drainage. There is no tenting of the skin. Capillary reflex less than 2 seconds. HEAD: Normocephalic atraumatic. EARS: External auditory canals clear, tympanic membranes pearly muller without erythema or effusion bilaterally. EYES: Pupils equal round and reactive to light and accommodation. Conjunctivae without injection, sclerae without icterus. Extraocular movements intact. NOSE: Patent, turbinates without inflammation or discharge. No sinus tenderness. MOUTH: Mucous membranes moist. Tonsils are not enlarged. Pharynx without erythema or exudate. Uvula midline. Airway patent. Tongue does not deviate. NECK: Supple without nuchal rigidity. No lymphadenopathy. No thyromegaly. Cervical spine is nontender. No JVD. HEART: Regular rate and rhythm without murmurs gallops or rubs. LUNGS: Clear to auscultation bilaterally without wheezes, rales or rhonchi. . No retractions or accessory muscle use. ABDOMEN: Positive bowel sounds x 4. Soft, nontender, without masses or organomegaly. MUSCULOSKELETAL: No muscle atrophy, erythema, or edema noted. Full range of motion without joint tenderness in all extremities. Diffuse tenderness throughout the entire spine. Strength 5/5 throughout. NEURO: Patient was alert and oriented to person place and time. Normal sensation to light and sharp touch. Deep tendon reflexes 2+ in the lower extremities bilaterally. No focal neurological deficits. Medical Decision & Procedures ER Provider Diagnostic Interpretation: LUMBAR SPINE 5 VIEWS HISTORY: Trauma. Pain. low back pain COMPARISON: 03/04/2016 FINDINGS: There is no fracture. No subluxation. Postoperative changes consistent with a low lumbar laminectomy. Moderate degenerative intervertebral this change. Grade 1 anterolisthesis L4 on L5 unchanged from the prior study of 03/04/2016 IMPRESSION: Degenerative and postoperative change. No acute process. THORACIC SPINE 3 VIEWS HISTORY: Trauma back pain COMPARISON: None. FINDINGS: There is no fracture. No subluxation. Considerable degenerative disc change IMPRESSION: Considerable degenerative change. No acute process. CHEST ONE VIEW PORTABLE CLINICAL HISTORY: chest pain COMPARISON STUDY: 07/20/2016 FINDINGS: Stable fullness left hilum with left apical fibrotic change. Stable blunting left lateral gastric angle. No acute or interval process. IMPRESSION: Stable postoperative and chronic change left hemithorax. No acute process. Laboratory Results 01/28/17 08:00 Red Blood Count 4.23, Mean Corpuscular Volume 93.1, Mean Corpuscular Hemoglobin 31.2, Mean Corpuscular Hemoglobin Concent 33.5, Mean Platelet Volume 9.7, Neutrophils (%) (Auto) 64.6, Lymphocytes (%) (Auto) 19.0, Monocytes (%) (Auto) 10.7, Eosinophils (%) (Auto) 4.6, Basophils (%) (Auto) 1.1, Neutrophils # (Auto ) 2.95, Lymphocytes # (Auto) 0.87, Monocytes # (Auto) 0.49, Eosinophils # (Auto ) 0.21, Basophils # (Auto) 0.05 01/28/17 08:00 Test 01/28/17 08:00 01/28/17 11:15 01/28/17 11:20 White Blood Count 4.57 K/uL (4.8-10.8) Red Blood Count 4.23 M/uL (4.2-5.4) Hemoglobin 13.2 g/dL (12.0-16.0) Hematocrit 39.4 % (37-47) Mean Corpuscular Volume 93.1 fL (80-100) Mean Corpuscular Hemoglobin 31.2 pg (25-34) Mean Corpuscular Hemoglobin Concent 33.5 g/dl (32-36) Platelet Count 190 K/uL (130-400) Mean Platelet Volume 9.7 fL (7.4-10.4) Neutrophils (%) (Auto) 64.6 % Lymphocytes (%) (Auto) 19.0 % Monocytes (%) (Auto) 10.7 % Eosinophils (%) (Auto) 4.6 % Basophils (%) (Auto) 1.1 % Neutrophils # (Auto) 2.95 K/uL (1.4-6.5) Lymphocytes # (Auto) 0.87 K/uL (1.2-3.4) Monocytes # (Auto) 0.49 K/uL (0.11-0.59) Eosinophils # (Auto) 0.21 K/uL (0-0.5) Basophils # (Auto) 0.05 K/uL (0-0.2) RDW Standard Deviation 46.1 fL (36.4-46.3) RDW Coefficient of Variation 13.5 % (11.5-14.5) Immature Granulocyte % (Auto) 0.0 % Immature Granulocyte # (Auto) 0.00 K/uL (0.00-0.02) Erythrocyte Sedimentation Rate 19 mm/hr (0-21) Prothrombin Time 10.7 SECONDS (9.0-12.0) Prothromb Time International Ratio 1.0 (0.9-1.1) Activated Partial Thromboplast Time 25.7 SECONDS (21.0-31.0) Partial Thromboplastin Ratio 1.0 Anion Gap 6.0 mmol/L (3-11) Est Creatinine Clear Calc Drug Dose 64.6 ml/min Estimated GFR () 76.6 Estimated GFR (Non- 66.1 BUN/Creatinine Ratio 23.7 (10-20) Calcium Level 9.4 mg/dl (8.5-10.1) Total Bilirubin 0.4 mg/dl (0.2-1) Aspartate Amino Transf (AST/SGOT) 14 U/L (15-37) Alanine Aminotransferase (ALT/SGPT) 19 U/L (12-78) Alkaline Phosphatase 105 U/L (45-117) Troponin I < 0.015 ng/ml (0-0.045) C-Reactive Protein < 0.29 mg/dl (0-0.29) Total Protein 7.3 gm/dl (6.4-8.2) Albumin 3.9 gm/dl (3.4-5.0) Globulin 3.4 gm/dl (2.5-4.0) Albumin/Globulin Ratio 1.1 (0.9-2) Bedside Troponin I 0.000 ng/ml (0-0.045) Urine Color YELLOW Urine Appearance CLEAR (CLEAR) Urine pH 6.0 (4.5-7.5) Urine Specific [place] 1.023 (1.000-1.030) Urine Protein NEG (NEG) Urine Glucose (UA) NEG (NEG) Urine Ketones NEG (NEG) Urine Occult Blood NEG (NEG) Urine Nitrite NEG (NEG) Urine Bilirubin NEG (NEG) Urine Urobilinogen NEG (NEG) Urine Leukocyte Esterase NEG (NEG) Medications Administered Medications (Trade) Dose Ordered Sig/Fran Route Start Time Stop Time Status Last Admin Dose Admin Morphine Sulfate 4 mg 4 mg NOW STAT IV 01/28/17 07:42 01/28/17 07:44 DC 01/28/17 08:04 4 MG Sodium Chloride (Nss 500ml) 500 ml @ 999 mls/hr Q31M STAT IV 01/28/17 07:42 01/28/17 08:12 DC 01/28/17 08:05 999 MLS/HR Hydromorphone HCl (Dilaudid Inj) 1 mg NOW STAT IV 01/28/17 08:20 01/28/17 08:21 DC 01/28/17 08:26 1 MG Procedure The patient was monitored on a certified physical therapist assistant. They maintained a normal sinus rhythm without ectopy. ECG Indication: back/shoulder pain Rate (beats per minute): 88 Rhythm: normal sinus Findings: LBBB, nonspecific-ST abn Change: Left bundle branch block was present on previous tracing from 11/15/2016. There are now nonspecific ST-T wave changes in the lateral leads. ED Course The patient was seen and examined. Previous visits were reviewed. The patient does not have a fever or leukocytosis. Sedimentation rate and CRP are within normal limits. She does not have any significant electrolyte abnormalities. Initial and repeat troponin were negative. INR was 1.0. Urinalysis was negative. X-ray of the thoracic spine, lumbar spine and chest were obtained as above. There is no obvious acute abnormality. The patient was initially given 4 mg IV morphine with no improvement in her pain She was then given 1 mg IV Dilaudid with marked improvement in her pain. The patient was fairly sedated and was monitored for a few hours. An ambulatory trial was performed and the patient was able to ambulate without any significant difficulty or hypoxia. The patient be given a very small prescription for oxycodone. She is advised to follow-up with her family doctor and orthopedics. The patient was also noted to have a left lower extremity cellulitis and abrasion. She'll be placed on Bactrim and Keflex. She should return to the ER if any worsening symptoms. The patient was also seen and examined by who agrees with the assessment and treatment plan. Medical Decision DIFFERENTIAL DIAGNOSIS: Lumbar strain, degenerative disc disease, spondylolisthesis, herniated disc, spinal stenosis, osteoporosis, fracture, cauda equina syndrome, neoplasm, infection, inflammatory arthritis, among others. [place] Drug Monitoring Program Search Results: patient reviewed within database Drug Monitoring Findings: The patient filled narcotic prescriptions regularly at the end of last year but not in the recent past Impression Primary Impression: Back pain Additional Impression: Cellulitis Departure Information Dispostion Home / Self-Care Condition GOOD Prescriptions Sulfa/Trimethoprim (Bactrim Ds 800MG/160MG) Tab 1 TAB PO BID for 7 Days, #14 TAB Prov: Claribel Yeung PA-C 01/28/17 Cephalexin Monohydrate (Keflex) 500 Mg Cap 500 MG PO QID for 7 Days, #28 CAP Prov: Claribel Yeung PA-C 01/28/17 Oxycodone Ir (Roxicodone Ir) 5 Mg Tab 1 TAB PO Q6 Y for Pain, #10 TAB For Initial Treatment Prov: Claribel Yeung PA-C 01/28/17 Referrals Daniella Lawrence, C.R.N.P. (PCP) Francisco Cline, DO Patient Instructions Back Pain - [facility], Cellulitis - [facility], [facility] Additional Instructions Oxy IR 1-2 tablets every 4-6 hrs as needed for worse pain. No driving or alcohol use with Oxy IR. Bactrim and Keflex as prescribed, until finished treatment the leg infection Contact your family doctor first thing Monday morning for a follow-up appointment and referral for pain management and potentially orthopedics Otherwise, you should follow-up with Dr. Cline Return with any worsening symptoms Problem Qualifiers Primary Impression: Back pain Additional Impression: Cellulitis Site of cellulitis: extremity Site of cellulitis of extremity: lower extremity Laterality: left Qualified Codes: L03.116 - Cellulitis of left lower limb
[2017-01-28 08:14] LABS: BASO % 1.1 %; BASO ABS # 0.05 K/uL (0-0.2); COMPLETE YES; EOS % 4.6 %; HEMATOCRIT 39.4 % (37-47); LYMPH ABS # 0.87 K/uL (1.2-3.4); MEAN CELL VOLUME 93.1 fL (80-100); MEAN CORPUSCULAR HEMOGLOBIN 31.2 pg (25-34); MEAN CORPUSCULAR HGB CONC 33.5 g/dl (32-36); MEAN PLATELET VOLUME 9.7 fL (7.4-10.4); MONO % 10.7 %; NEUT % 64.6 %; PLATELET COUNT 190 K/uL (130-400); RED BLOOD COUNT 4.23 M/uL (4.2-5.4); WHITE BLOOD COUNT 4.57 K/uL (4.8-10.8)
[2017-01-28] MEDS ORDERED: HYDROmorphone INJ 1 MG/ML SYR IV STA (08:20)
[2017-01-28 08:26] LABS: ALT/SGPT 19 U/L (12-78); BLOOD UREA NITROGEN 21 mg/dl (7-18); BUN/CREATININE RATIO 23.7 (10-20); C-REACTIVE PROTEIN < 0.29 mg/dl (0-0.29); CALCIUM 9.4 mg/dl (8.5-10.1); CARBON DIOXIDE 28 mmol/L (21-32); CHLORIDE 110 mmol/L (98-107); CREATININE 0.89 mg/dl (0.60-1.20); GLUCOSE 112 mg/dl (70-99); POTASSIUM 4.3 mmol/L (3.5-5.1); SODIUM 144 mmol/L (136-145)
[2017-01-28 08:30] LABS: ALB/GLOB RATIO 1.1 (0.9-2); ALKALINE PHOSPHATASE 105 U/L (45-117); AST/SGOT 14 U/L (15-37)
[2017-01-28 08:37] LABS: PROTHROMBIN TIME (PATIENT) 10.7 SECONDS (9.0-12.0)
--- NOTE | 2017-01-28 09:00 | DIAGNOSTIC IMAGING REPORT ---
THORACIC SPINE 3 VIEWS HISTORY: Trauma back pain COMPARISON: None. FINDINGS: There is no fracture. No subluxation. Considerable degenerative disc change IMPRESSION: Considerable degenerative change. No acute process. Electronically signed by: Teodoro Mota M.D. 01/28/2017 8:58 AM Dictated Date/Time: 01/28/2017 8:58 AM
--- NOTE | 2017-01-28 09:01 | DIAGNOSTIC IMAGING REPORT ---
LUMBAR SPINE 5 VIEWS HISTORY: Trauma. Pain. low back pain COMPARISON: 03/04/2016 FINDINGS: There is no fracture. No subluxation. Postoperative changes consistent with a low lumbar laminectomy. Moderate degenerative intervertebral this change. Grade 1 anterolisthesis L4 on L5 unchanged from the prior study of 03/04/2016 IMPRESSION: Degenerative and postoperative change. No acute process. Electronically signed by: Teodoro Mota M.D. 01/28/2017 9:00 AM Dictated Date/Time: 01/28/2017 8:59 AM
[2017-01-28 11:37] LABS: URINE APPEARANCE CLEAR (CLEAR); URINE BILIRUBIN NEG (NEG); URINE COLOR YELLOW; URINE NITRITE NEG (NEG); URINE SPECIFIC GRAVITY 1.023 (1.000-1.030); UROBILINOGEN NEG (NEG); ZZUR CULT IF INDIC CLEAN CATCH NO
[2017-01-28 11:44] LABS: MANUAL MICROSCOPIC REQUIRED? NO; REVIEW REQ? NO
[2017-01-28] MEDS ORDERED: CEPH500C PO (12:17)
[2017-01-28] MEDS ORDERED: SULF800T23 PO (12:17)
[2017-01-28] MEDS ORDERED: OXYC1TAB3 PO (12:17)
[2017-01-28 12:58] VITALS: BP 127/84; PULSE 88; O2SAT 98
--- NOTE | 2017-01-29 08:18 | EMERGENCY ROOM VISIT NOTE ---
ED Visit Note First contact with patient: 07:25 I have personally seen and evaluated the patient with the PA. I agree with the diagnosis and management decisions and have been personally involved in the case. Please see Delilah Yeung PA-C's notes for further details of the history, physical and visit.
== END 2017-01-28 13:05 | disposition home or self-care (01) ==
LOC: C.EDB 07:17 → C.EDA 13:05
DX: M54.9 Dorsalgia, unspecified (principal); L03.116 Cellulitis of left lower limb; F17.200 Nicotine dependence, unspecified, uncomplicated; I25.10 Atherosclerotic heart disease of native coronary artery without angina pectoris; I10 Essential (primary) hypertension; E78.5 Hyperlipidemia, unspecified; C34.90 Malignant neoplasm of unspecified part of unspecified bronchus or lung; G25.81 Restless legs syndrome; Z86.73 Personal history of transient ischemic attack (TIA), and cerebral infarction without residual deficits

== ENCOUNTER 2017-02-18 19:49 | Emergency (ER) | payer OTHER ==
[~2017-02-18] VITALS: Ht 157.5 cm; Wt 97.6 kg
[~2017-02-18 19:49] MED LIST changes: +METO100T44 PO; -METO1TAB69 PO; -OXYC-164 PO; +OXYC1TAB3 PO
[2017-02-18 19:59] VITALS: TEMP 36.4; Ht 157.5 cm; Wt 97.6 kg
[2017-02-18] MEDS ORDERED: DiphenhydrAMINE HCL 50 MG/ML VIAL IV STA (20:38)
[2017-02-18] MEDS ORDERED: FAMOTIDINE 20MG/102 ML D5W IV STA (20:38)
[2017-02-18] MEDS ORDERED: SODIUM CHLORIDE 0.9% 1000ML 1,000 ML IV STA (20:38)
--- NOTE | 2017-02-18 20:38 | EMERGENCY ROOM VISIT NOTE ---
History Report prepared by [place]: Finn Rosa Under the Supervision of: Dr. Dakota Milligan M.D. First contact with patient: 20:34 Chief Complaint: RASH Stated Complaint: RASH History of Present Illness The patient is a 71 year old female who presents to the Emergency Room with complaints of a rash that began this afternoon. Her symptoms began with itching on her arms and hands, but it then spread all over her head, back, arms, and legs. She states that her eyes feel "funny", short of breath, and that her lips are swelling. She states that she ate nothing out of the ordinary and prepared everything herself. She did say that she possibly may have a developing peanut allergy due to a similar episode in the past. She has not changed any of her medications or taken anything new. She denies any abnormal urinary symptoms. Source of History: patient Onset: this afternoon Position: other (global) Symptom Intensity: moderate Quality: other (rash) Timing: worsening Associated Symptoms: + SOB, No urinary symptoms Review of Systems See HPI for pertinent positives & negatives. A total of 10 systems reviewed and were otherwise negative. Past Medical & Surgical Medical Problems: (1) Altered mental status (2) CAD (coronary artery disease) (3) Cerebral vascular accident (4) Degenerative disc disease (5) Dyslipidemia (6) Hypertension (7) Lumbar stenosis (8) Lung cancer (9) Panic disorder without agoraphobia (10) Restless leg syndrome (11) Suicidal ideation (12) Tobacco use disorder Surgical Problems: (1) No pertinent past surgical history Family History Colon cancer Depression Social History Smoking Status: Current Every Day Smoker Alcohol Use: none Drug Use: none Marital Status: Housing Status: lives with family Occupation Status: retired Current/Historical Medications Scheduled Albuterol Sulfate (Proair Respiclick), 2 PUFFS INH QPM Amlodipine Besylate (Norvasc), 10 MG PO QAM Bupropion Hcl (Bupropion Hcl Er), 1 TAB PO BID Buspirone Hcl (Buspar), 15 MG PO BID Cephalexin Monohydrate (Keflex), 500 MG PO QID Clopidogrel Bisulfate (Clopidogrel), 75 MG PO QAM Duloxetine HCl (Duloxetine HCl), 120 MG PO QAM Ferrous Gluconate (Ferrous Gluconate), 324 MG PO BID Folic Acid (Folvite), 1 MG PO QAM Ipratropium [place] (Atrovent Hfa), 1 PUFFS INH BID Levothyroxine Sodium (Synthroid), 25 MCG PO QAM Meloxicam (Meloxicam), 1 TAB PO QAM Metoprolol Succ (Toprol Xl) (Toprol-Xl ), 100 MG PO QAM Omeprazole (Prilosec), 40 MG PO DAILY Oxygen (Oxygen), 3 LITERS NA HS Prednisone (Prednisone), 2 TAB PO DAILY Ropinirole (Requip), 4 MG PO HS Simvastatin (Simvastatin), 1 TAB PO HS Trazodone HCl (Trazodone HCl), 2 TAB PO HS Scheduled PRN Oxycodone Ir (Roxicodone Ir), 1 TAB PO Q6 PRN for Pain Tizanidine (Zanaflex ), 4 MG PO Q8 PRN for Anxiety Allergies Coded Allergies: Aspirin (Unverified Allergy, Mild, Stomach Pain/Cramping, 01/28/17) Chlorzoxazone (Unverified Allergy, Unknown, DIZZINESS, BALANCE ISSUES , ) Meperidine (Unverified Allergy, Unknown, VOMITING,FAINTING, 01/28/17) Diazepam (Unverified Adverse Reaction, Severe, Suicidal Thoughts, 01/28/17) Fluoxetine (Unverified Adverse Reaction, Mild, Uncontrollable Crying, 01/28) Gabapentin (Verified Adverse Reaction, Unknown, COMBATIVENESS , 01/28/17) Pregabalin (Unverified Adverse Reaction, Unknown, HALLUCINATIONS, 01/28/17) Uncoded Allergies: PEANUTS/PEANUT BUTTER (Adverse Reaction, Mild, RASH, 11/26/16) NO RASH NOTED; PT COMPLAINS OF SEVERE ITCHINESS Physical Exam Vital Signs Date Time Temp Pulse Resp B/P Pulse Ox O2 Delivery O2 Flow Rate FiO2 02/18/17 22:30 112 20 160/89 94 Room Air 02/18/17 21:31 149/112 94 02/18/17 21:05 122 20 02/18/17 21:02 120 02/18/17 21:00 119 18 175/90 94 Room Air 02/18/17 19:59 36.4 127 18 135/82 92 Room Air Physical Exam GENERAL: Patient is very anxious appearing and in minimal acute distress. HEENT: No acute trauma, normocephalic atraumatic, mucous membranes moist, no nasal congestion, no scleral icterus. NECK: No stridor, no adenopathy, no meningismus, trachea is midline. LUNGS: No dyspnea. Clear to auscultation and equal bilaterally. No wheeze, no rhonchi. HEART: Tachycardic rate and regular rhythm. No murmurs, rubs, gallops appreciated. ABDOMEN: Soft, nontender, bowel sounds positive, no masses appreciated, no peritonitis. BACK: No midline tenderness, no CVA tenderness EXTREMITIES: Normal motion all extremities, no cyanosis, no edema. Right leg has a superficial wound with surrounding erythema consistent with cellulitis. NEUROLOGIC: Alert and oriented, no acute motor or sensory deficits, no focal weakness, cranial nerves grossly intact. SKIN: No jaundice, no diaphoresis. Diffuse rash and erythema over much of the body with excoriations from scratching over much of the body as well. Medical Decision & Procedures Laboratory Results 02/18/17 20:14 Red Blood Count 5.07, Mean Corpuscular Volume 89.7, Mean Corpuscular Hemoglobin 31.8, Mean Corpuscular Hemoglobin Concent 35.4, Mean Platelet Volume 10.0, Neutrophils (%) (Auto) 57.4, Lymphocytes (%) (Auto) 34.0, Monocytes (%) (Auto) 7.6, Eosinophils (%) (Auto) 0.6, Basophils (%) (Auto) 0.2, Neutrophils # (Auto) 5.32, Lymphocytes # (Auto) 3.15, Monocytes # (Auto) 0.70, Eosinophils # (Auto) 0.06, Basophils # (Auto) 0.02 02/18/17 20:14 Test 02/18/17 20:14 White Blood Count 9.27 K/uL (4.8-10.8) Red Blood Count 5.07 M/uL (4.2-5.4) Hemoglobin 16.1 g/dL (12.0-16.0) Hematocrit 45.5 % (37-47) Mean Corpuscular Volume 89.7 fL (80-100) Mean Corpuscular Hemoglobin 31.8 pg (25-34) Mean Corpuscular Hemoglobin Concent 35.4 g/dl (32-36) Platelet Count 266 K/uL (130-400) Mean Platelet Volume 10.0 fL (7.4-10.4) Neutrophils (%) (Auto) 57.4 % Lymphocytes (%) (Auto) 34.0 % Monocytes (%) (Auto) 7.6 % Eosinophils (%) (Auto) 0.6 % Basophils (%) (Auto) 0.2 % Neutrophils # (Auto) 5.32 K/uL (1.4-6.5) Lymphocytes # (Auto) 3.15 K/uL (1.2-3.4) Monocytes # (Auto) 0.70 K/uL (0.11-0.59) Eosinophils # (Auto) 0.06 K/uL (0-0.5) Basophils # (Auto) 0.02 K/uL (0-0.2) RDW Standard Deviation 42.5 fL (36.4-46.3) RDW Coefficient of Variation 13.0 % (11.5-14.5) Immature Granulocyte % (Auto) 0.2 % Immature Granulocyte # (Auto) 0.02 K/uL (0.00-0.02) Anion Gap 16.0 mmol/L (3-11) Est Creatinine Clear Calc Drug Dose 44.6 ml/min Estimated GFR () 48.5 Estimated GFR (Non- 41.8 BUN/Creatinine Ratio 17.6 (10-20) Calcium Level 9.7 mg/dl (8.5-10.1) Troponin I < 0.015 ng/ml (0-0.045) Laboratory results as reviewed by me. Medications Administered Medications (Trade) Dose Ordered Sig/Fran Route Start Time Stop Time Status Last Admin Dose Admin Diphenhydramine HCl (Benadryl Inj) 50 mg NOW STAT IV 02/18/17 20:38 02/18/17 20:39 DC 02/18/17 20:52 50 MG Dexamethasone Sodium Phosphate (Decadron Inj) 10 mg NOW ONCE IV 02/18/17 20:45 02/18/17 20:46 DC 02/18/17 20:50 10 MG Famotidine 20 mg 20 mg ONE STAT IV 02/18/17 20:38 02/18/17 20:39 DC 02/18/17 20:48 20 MG Sodium Chloride (Nss 1000ml) 1,000 ml @ 999 mls/hr Q1H1M STAT IV 02/18/17 20:38 02/18/17 21:38 DC 02/18/17 20:48 999 MLS/HR Lorazepam (Ativan Inj) 0.5 mg NOW STAT IV 02/18/17 21:13 02/18/17 21:14 DC 02/18/17 21:19 0.5 MG Cephalexin Monohydrate (Keflex Cap) 500 mg NOW ONCE PO 02/18/17 22:15 02/18/17 22:16 DC 02/18/17 22:29 500 MG ECG Indication: SOB/dyspnea Rate (beats per minute): 119 Rhythm: sinus tachycardia Findings: LBBB, no acute ischemic change, no ectopy Comparison ECG Date: 28 January 2017 Change: Similar morphology, but changed rate when compared to previous. ED Course 2033: The patient was evaluated in room A10. A complete history and physical exam was performed. 2037: Ordered Sodium Chloride 1000 ml @ 999 mls/hr IV, Famotidine 20 mg IV, Benadryl Inj 50 mg IV 2044: Ordered Decadron Inj 10 mg IV 2111: At this time, the patient is feeling very anxious and would like something for it. Her heart rate is up to 105. 2112: Ordered Ativan Inj 0.5 mg IV 2: The patient is now sleepy put awake and talking. She wants us to watch her for a while just to be sure. When asked about antibiotics, she stated that she thinks she does well with Keflex. 5: Ordered Keflex Cap 500 mg PO 2241: The patient informed me that she needs to leave right now. 2250: Reevaluated the patient. Discussed results and discharge instructions: She verbalized understanding and agreement. The patient is ready for discharge. Medical Decision Differential: Allergic Reaction, Urticaria, Anaphylaxis, Mario-Elvis Syndrome, Toxic Epidermal Necrolysis, Erythema Multiforme, Cellulitis, amongst other etiologies entertained. 71 yr old female arrives with complaint of diffuse hives, itching and feeling of throat closing. She is quite anxious and worked up and by exam she does not have swelling of lips, tongue and posterior pharynx is normal. Lungs clear bilaterally. Symptoms resolved with above and given ativan for her anxiety with excellent result. Does have cellulitis left overton though not severe and without fevers nor significant WBC elevation I do not feel this requires admission. No MRSA history thus will treat with keflex. Unclear etiology of her allergic reaction though may have been food earlier. Advised standard instructions reviewing allergic reactions and cellulitis. Patient wants to get home and aware of what to monitor for. Impression Primary Impression: Allergic reaction Additional Impression: Left leg cellulitis Scribe Attestation The scribe's documentation has been prepared under my direction and personally reviewed by me in its entirety. I confirm that the note above accurately reflects all work, treatment, procedures, and medical decision making performed by me. Departure Information Dispostion Home / Self-Care Prescriptions Cephalexin Monohydrate (Keflex) 500 Mg Cap 500 MG PO QID for 10 Days, #40 CAP Prov: Dakota Milligan M.D. 02/18/17 Prednisone (Prednisone) 20 Mg Tab 2 TAB PO DAILY for 5 Days, #10 TAB Prov: Dakota Milligan M.D. 02/18/17 Referrals Daniella Lawrence C.R.N.P. (PCP) Forms HOME CARE DOCUMENTATION FORM, IMPORTANT VISIT INFORMATION, WORK / SCHOOL INSTRUCTIONS Patient Instructions Cellulitis - [facility], ED Allergic Reaction General Other, My [facility] Problem Qualifiers Primary Impression: Allergic reaction Encounter type: initial encounter Qualified Codes: T78.40XA - Allergy, unspecified, initial encounter
[2017-02-18 20:43] LABS: BASO % 0.2 %; BASO ABS # 0.02 K/uL (0-0.2); COMPLETE YES; EOS % 0.6 %; HEMATOCRIT 45.5 % (37-47); IG% 0.2 %; LYMPH ABS # 3.15 K/uL (1.2-3.4); MEAN CELL VOLUME 89.7 fL (80-100); MEAN CORPUSCULAR HEMOGLOBIN 31.8 pg (25-34); MEAN CORPUSCULAR HGB CONC 35.4 g/dl (32-36); MONO % 7.6 %; NEUT % 57.4 %; PLATELET COUNT 266 K/uL (130-400); RED BLOOD COUNT 5.07 M/uL (4.2-5.4); WHITE BLOOD COUNT 9.27 K/uL (4.8-10.8)
[2017-02-18] MEDS ORDERED: DEXAMETHASONE SOD INJ 10 MG/ML VIAL IV ONE (20:45)
[2017-02-18 20:53] LABS: BLOOD UREA NITROGEN 23 mg/dl (7-18); BUN/CREATININE RATIO 17.6 (10-20); CALCIUM 9.7 mg/dl (8.5-10.1); CARBON DIOXIDE 24 mmol/L (21-32); CHLORIDE 103 mmol/L (98-107); GLUCOSE 122 mg/dl (70-99); SODIUM 143 mmol/L (136-145)
[2017-02-18] MEDS ORDERED: LORAZEPAM 2 MG/ML 1 ML VIAL IV STA (21:13)
[2017-02-18] MEDS ORDERED: CEPHALEXIN MONOHYDRATE 250 MG CAP PO ONE (22:15)
[2017-02-18 22:30] VITALS: BP 160/89; PULSE 112; O2SAT 94
[2017-02-18] MEDS ORDERED: PRED20TA PO (22:43)
[2017-02-18] MEDS ORDERED: CEPH500C PO (22:43)
== END 2017-02-18 22:58 | disposition home or self-care (01) ==
LOC: C.EDB 19:52 → C.EDA 22:58
DX: T78.40XA Allergy, unspecified, initial encounter (principal); X58.XXXA Exposure to other specified factors, initial encounter; L03.116 Cellulitis of left lower limb; I25.10 Atherosclerotic heart disease of native coronary artery without angina pectoris; Z86.73 Personal history of transient ischemic attack (TIA), and cerebral infarction without residual deficits; E78.5 Hyperlipidemia, unspecified; I10 Essential (primary) hypertension; Z85.118 Personal history of other malignant neoplasm of bronchus and lung; F41.0 Panic disorder [episodic paroxysmal anxiety]; G25.81 Restless legs syndrome; F17.210 Nicotine dependence, cigarettes, uncomplicated; Z80.0 Family history of malignant neoplasm of digestive organs; Z81.8 Family history of other mental and behavioral disorders; Z79.899 Other long term (current) drug therapy

== ENCOUNTER 2017-03-23 11:29 | Emergency (ER) | payer OTHER ==
[~2017-03-23] VITALS: Ht 157.5 cm; Wt 99.0 kg
[2017-03-23 11:39] VITALS: TEMP 36.7; Ht 157.5 cm; Wt 99.0 kg
[2017-03-23] MEDS ORDERED: MoRPHine SULFATE 4 MG/ML 1 ML CARP\\VIAL IV STA (12:13)
[2017-03-23] MEDS ORDERED: MULTTAB58 PO (12:18)
[2017-03-23 12:53] LABS: BASO % 0.4 %; BASO ABS # 0.03 K/uL (0-0.2); COMPLETE YES; EOS % 2.3 %; HEMATOCRIT 43.7 % (37-47); IG% 0.3 %; LYMPH % 18.5 %; LYMPH ABS # 1.34 K/uL (1.2-3.4); MEAN CELL VOLUME 91.6 fL (80-100); MEAN CORPUSCULAR HEMOGLOBIN 31.4 pg (25-34); MEAN CORPUSCULAR HGB CONC 34.3 g/dl (32-36); MONO % 13.4 %; NEUT % 65.1 %; PLATELET COUNT 206 K/uL (130-400); RED BLOOD COUNT 4.77 M/uL (4.2-5.4); WHITE BLOOD COUNT 7.24 K/uL (4.8-10.8)
[2017-03-23] MEDS ORDERED: LORAZEPAM 2 MG/ML 1 ML VIAL IV STA (12:57)
[2017-03-23 13:06] LABS: URINE APPEARANCE CLEAR (CLEAR); URINE BILIRUBIN NEG (NEG); URINE COLOR YELLOW; URINE EPITHELIAL CELL AUTO 0-5 /lpf (0-5); URINE NITRITE NEG (NEG); URINE SPECIFIC GRAVITY 1.007 (1.000-1.030); UROBILINOGEN NEG (NEG)
[2017-03-23 13:13] LABS: BUN/CREATININE RATIO 24.6 (10-20); CALCIUM 9.6 mg/dl (8.5-10.1); CREATININE 0.77 mg/dl (0.60-1.20); POTASSIUM 4.5 mmol/L (3.5-5.1)
[2017-03-23 13:15] LABS: MANUAL MICROSCOPIC REQUIRED? NO; REVIEW REQ? NO
--- NOTE | 2017-03-23 14:16 | EMERGENCY ROOM VISIT NOTE ---
History First contact with patient: 11:51 Chief Complaint: BACK PAIN Stated Complaint: BACK PAIN History of Present Illness The patient is a 71 year old female who presents to the Emergency Room with complaints of low back pain. Patient reports chronic back pain for many years that was treated with a lumbar fusion in November 2016, which she states initially improved her symptoms, however her back pain has persisted and has been getting worse over the past several weeks. Patient states her pain was so severe the last 2 nights that she has not been able to sleep. She has recently established with a chronic pain clinic in [place] about a month ago, and states she has a follow-up appointment with them tomorrow, but states "I just couldn't wait that long because the pain was so bad." She also reports over the past 2 days having urinary incontinence, states she feels a sudden urge to go to the bathroom and cannot always make it there in time because it's difficult to walk with her back pain. She denies new or worsening weakness, numbness, denies saddle paresthesias. Review of Systems GENERAL: Denies fevers, chills, malaise, fatigue, unintentional weight changes. HEENT: Denies dizziness, visual problems, hearing loss, tinnitus. Denies difficulty swallowing or oral lesions. PULMONARY: Denies cough, shortness of breath, sputum production or hemoptysis. CARDIOVASCULAR: Denies chest pain, palpitations, dyspnea on exertion, orthopnea or peripheral edema. GASTROINTESTINAL: Denies diarrhea, constipation, nausea, vomiting, or abdominal pain. GENITOURINARY: Denies dysuria, frequency, urgency or nocturia. NEUROLOGIC: Denies history of epilepsy, CVA, TIA or chronic headaches. MUSCULOSKELETAL: Denies history of joint tenderness/swelling. + Chronic back pain. SKIN: Denies rashes or lesions. PSYCHIATRIC: Denies history of depression or mental illness. ENDOCRINE: Denies history of diabetes, thyroid disorders, abnormal hair growth or sexual dysfunction. Past Medical/Surgical History Medical Problems: (1) Altered mental status (2) CAD (coronary artery disease) (3) Cerebral vascular accident (4) Degenerative disc disease (5) Dyslipidemia (6) Hypertension (7) Lumbar stenosis (8) Lung cancer (9) Panic disorder without agoraphobia (10) Restless leg syndrome (11) Suicidal ideation (12) Tobacco use disorder Surgical Problems: (1) No pertinent past surgical history Family History Colon cancer Depression Social History Smoking Status: Current Every Day Smoker Alcohol Use: none Drug Use: none Marital Status: Housing Status: lives with family Occupation Status: retired Current/Historical Medications Scheduled Albuterol Sulfate (Proair Respiclick), 2 PUFFS INH QPM Amlodipine Besylate (Norvasc), 10 MG PO QAM Bupropion Hcl (Bupropion Hcl Er), 1 TAB PO BID Buspirone Hcl (Buspar), 15 MG PO BID Clopidogrel Bisulfate (Clopidogrel), 75 MG PO QAM Duloxetine HCl (Duloxetine HCl), 120 MG PO QAM Folic Acid (Folvite), 1 MG PO QAM Ipratropium [place] (Atrovent Hfa), 1 PUFFS INH BID Levothyroxine Sodium (Synthroid), 25 MCG PO QAM Meloxicam (Meloxicam), 1 TAB PO QAM Metoprolol Succ (Toprol Xl) (Toprol-Xl ), 100 MG PO QAM Multiple Vitamin (Multivitamin), 1 TAB PO DAILY Nitrofurantoin Monohyd Macrocr (Macrobid), 100 MG PO BID Omeprazole (Prilosec), 40 MG PO DAILY Oxygen (Oxygen), 3 LITERS NA HS Ropinirole (Requip), 4 MG PO HS Simvastatin (Simvastatin), 1 TAB PO HS Trazodone HCl (Trazodone HCl), 2 TAB PO HS Scheduled PRN Tizanidine (Zanaflex ), 4 MG PO Q8 PRN for Anxiety Allergies Coded Allergies: Aspirin (Unverified Allergy, Mild, Stomach Pain/Cramping, 03/23/17) Chlorzoxazone (Unverified Allergy, Unknown, DIZZINESS, BALANCE ISSUES , 09/29) Meperidine (Unverified Allergy, Unknown, VOMITING,FAINTING, 03/23/17) Diazepam (Unverified Adverse Reaction, Severe, Suicidal Thoughts, 03/23/17) Fluoxetine (Unverified Adverse Reaction, Mild, Uncontrollable Crying, 03/23) Gabapentin (Verified Adverse Reaction, Unknown, COMBATIVENESS , 03/23/17) Pregabalin (Unverified Adverse Reaction, Unknown, HALLUCINATIONS, 03/23/17) Uncoded Allergies: PEANUTS/PEANUT BUTTER (Adverse Reaction, Mild, RASH, 11/26/16) NO RASH NOTED; PT COMPLAINS OF SEVERE ITCHINESS Physical Exam Vital Signs Date Time Temp Pulse Resp B/P Pulse Ox O2 Delivery O2 Flow Rate FiO2 03/23/17 15:13 105 22 128/79 95 03/23/17 14:05 104 20 152/74 94 Room Air 03/23/17 11:39 36.7 78 22 143/89 95 Room Air Physical Exam CONSTITUTIONAL: No acute distress. Well appearing and well nourished. Alert and oriented X 4 with normal affect. HEENT: Normocephalic, atraumatic. Pupils equal, round and reactive to light, EOMI. TMs normal. Pharynx normal. NECK: Supple, full active range of motion without discomfort. RESPIRATORY: Clear to auscultation bilaterally with no wheezing, crackles, rhonchi or stridor. Equal expansion bilaterally. CARDIOVASCULAR: Regular rate and rhythm with no murmurs, rubs or gallops. Normal peripheral perfusion. No edema. GASTROINTESTINAL: Soft, nontender, nondistended. Bowel sounds present in all quadrants. Digital rectal exam reveals normal perianal sensation, normal rectal tone. MUSCULOSKELETAL: Full range of motion of all joints without discomfort. INTEGUMENTARY: No rash or other significant dermatologic conditions noted. NEUROLOGIC: Cranial nerves II-XII grossly intact. No focal neurologic deficits noted. Bilateral patellar and Achilles reflexes 2+ and equal. Bilateral lower extremity strength 5/5 and equal. Sensation intact to sharp and dull touch bilaterally. Patient noted to ambulate without difficulty. Medical Decision & Procedures Laboratory Results 03/23/17 12:35 Red Blood Count 4.77, Mean Corpuscular Volume 91.6, Mean Corpuscular Hemoglobin 31.4, Mean Corpuscular Hemoglobin Concent 34.3, Mean Platelet Volume 10.0, Neutrophils (%) (Auto) 65.1, Lymphocytes (%) (Auto) 18.5, Monocytes (%) (Auto) 13.4, Eosinophils (%) (Auto) 2.3, Basophils (%) (Auto) 0.4, Neutrophils # (Auto ) 4.71, Lymphocytes # (Auto) 1.34, Monocytes # (Auto) 0.97, Eosinophils # (Auto ) 0.17, Basophils # (Auto) 0.03 03/23/17 12:35 Test 03/23/17 12:35 03/23/17 12:37 White Blood Count 7.24 K/uL (4.8-10.8) Red Blood Count 4.77 M/uL (4.2-5.4) Hemoglobin 15.0 g/dL (12.0-16.0) Hematocrit 43.7 % (37-47) Mean Corpuscular Volume 91.6 fL (80-100) Mean Corpuscular Hemoglobin 31.4 pg (25-34) Mean Corpuscular Hemoglobin Concent 34.3 g/dl (32-36) Platelet Count 206 K/uL (130-400) Mean Platelet Volume 10.0 fL (7.4-10.4) Neutrophils (%) (Auto) 65.1 % Lymphocytes (%) (Auto) 18.5 % Monocytes (%) (Auto) 13.4 % Eosinophils (%) (Auto) 2.3 % Basophils (%) (Auto) 0.4 % Neutrophils # (Auto) 4.71 K/uL (1.4-6.5) Lymphocytes # (Auto) 1.34 K/uL (1.2-3.4) Monocytes # (Auto) 0.97 K/uL (0.11-0.59) Eosinophils # (Auto) 0.17 K/uL (0-0.5) Basophils # (Auto) 0.03 K/uL (0-0.2) RDW Standard Deviation 47.2 fL (36.4-46.3) RDW Coefficient of Variation 13.9 % (11.5-14.5) Immature Granulocyte % (Auto) 0.3 % Immature Granulocyte # (Auto) 0.02 K/uL (0.00-0.02) Anion Gap 4.0 mmol/L (3-11) Est Creatinine Clear Calc Drug Dose 75.8 ml/min Estimated GFR () 91.3 Estimated GFR (Non- 78.8 BUN/Creatinine Ratio 24.6 (10-20) Calcium Level 9.6 mg/dl (8.5-10.1) Urine Color YELLOW Urine Appearance CLEAR (CLEAR) Urine pH 7.0 (4.5-7.5) Urine Specific [place] 1.007 (1.000-1.030) Urine Protein NEG (NEG) Urine Glucose (UA) NEG (NEG) Urine Ketones NEG (NEG) Urine Occult Blood TRACE (NEG) Urine Nitrite NEG (NEG) Urine Bilirubin NEG (NEG) Urine Urobilinogen NEG (NEG) Urine Leukocyte Esterase LARGE (NEG) Urine WBC (Auto) >30 /hpf (0-5) Urine RBC (Auto) 0-4 /hpf (0-4) Urine Hyaline Casts (Auto) 1-5 /lpf (0-5) Urine Epithelial Cells (Auto) 0-5 /lpf (0-5) Urine Bacteria (Auto) 4+ (NEG) Medications Administered Medications (Trade) Dose Ordered Sig/Fran Route Start Time Stop Time Status Last Admin Dose Admin Morphine Sulfate (MoRPHine SULFATE INJ) 4 mg NOW STAT IV 03/23/17 12:13 03/23/17 12:16 DC 03/23/17 12:43 4 MG Lorazepam (Ativan Inj) 1 mg NOW STAT IV 03/23/17 12:57 03/23/17 12:58 DC 03/23/17 13:09 1 MG ED Course Patient was evaluated at bedside, history of physical exam performed. Orders were placed at bedside for labs, urinalysis, pain medicine, MRI of the lumbar spine to evaluate for low back pain. Patient discussed with Dr. Rueda, who agrees with my assessment and plan. Nursing notified me the patient states she has a lot of anxiety with MRI, requesting something for the anxiety. 1 mg IV Ativan ordered. Nursing notified me that patient was unable to tolerate her MRI. I spoke with the patient, she states this is due to her restless leg syndrome and is unable to lay still for the study. Given the patient's normal neurologic function, normal saddle sensation and rectal tone, and lack of true urinary incontinence, I do not feel that an emergent MRI is necessary at this time. Patient was updated on all results and plan for follow-up. She was encouraged to keep her appointment with pain management as well. Medical Decision CC: Patient presenting with complaint of low back pain. Interpretation of Labs: Unremarkable. Differential Diagnosis: Includes, but not limited to chronic back pain, lumbar radiculopathy, sciatica, metastatic disease; less likely cauda equina. Summary: Patient is alert and in no acute distress, pleasant and cooperative on exam. Patient is neurologically intact. She has normal strength, sensation, 2+ deep tendon reflexes bilaterally in the lower extremities. She has normal saddle sensation, normal rectal tone on digital rectal exam. She is noted to ambulate without any difficulty. Given patient's recent surgery and significant history of cancer with complaints of urinary incontinence and worsening pain, decision was made to obtain MRI of the lumbar spine. Attempts were made to perform the MRI, however patient was unable to lay still due to her "restless leg syndrome", in spite of medication with IV Ativan. On further questioning regarding her "urinary incontinence" patient describes this as increased urgency to go to the bathroom and difficulty making it in time. Urinalysis is appears consistent with a urinary tract infection, which would account for the increased urgency. Rx for Macrobid order to treat the UTI. I did discuss all of this with , who agrees with me that MRI is not emergent at this time, and she can continue to follow up with her PCP and surgeon, as well as her pain management where she is currently getting established. I discussed this with the patient and her daughter, they are agreeable to this plan. Patient reassessed multiple times throughout ED stay, with good improvement in her pain after IV morphine. Patient was given strict return precautions should her symptoms worsen, she and her daughter verbalized understanding. Impression Primary Impression: Chronic low back pain Additional Impression: UTI (urinary tract infection) Departure Information Dispostion Home / Self-Care Condition GOOD Prescriptions Nitrofurantoin Monohyd Macrocr (Macrobid) 100 Mg Cap 100 MG PO BID for 7 Days, #14 CAP Prov: Magda Cruz CRNP 03/23/17 Referrals Daniella Lawrence, C.R.N.P. (PCP) Patient Instructions ED Back Pain Acute Chronic, ED UTI Cystitis Female, My [facility] Additional Instructions Follow-up with your PCP and your surgeon regarding your low back pain. Keep your scheduled appointment tomorrow with pain management to continue addressing your chronic back pain. You have been diagnosed with a urinary tract infection today. Take the Macrobid (antibiotic) as prescribed for the full 7 days. Drink plenty of fluids to stay well hydrated. Please return to the ER for worsening symptoms, including severe worsening pain , numbness or weakness in your legs, difficulty walking, incontinence of bowel or bladder, or numbness in your groin area, fevers/chills, or any other concerns. Problem Qualifiers
[2017-03-23] MEDS ORDERED: NITR-5 PO (14:56)
[2017-03-23 15:13] VITALS: BP 128/79; PULSE 105; O2SAT 95
== END 2017-03-23 15:16 | disposition home or self-care (01) ==
LOC: C.EDB 11:36 → C.EDC 15:16
DX: M54.5 Low back pain (principal); N39.0 Urinary tract infection, site not specified; I25.10 Atherosclerotic heart disease of native coronary artery without angina pectoris; M51.36 Other intervertebral disc degeneration, lumbar region; E78.5 Hyperlipidemia, unspecified; I10 Essential (primary) hypertension; M48.06 Spinal stenosis, lumbar region; F41.0 Panic disorder [episodic paroxysmal anxiety]; F17.200 Nicotine dependence, unspecified, uncomplicated; G25.81 Restless legs syndrome; Z86.73 Personal history of transient ischemic attack (TIA), and cerebral infarction without residual deficits; Z85.118 Personal history of other malignant neoplasm of bronchus and lung

== ENCOUNTER → 2017-04-19 | Outpatient (CLI) | payer OTHER ==
[~2017-04-19] MED LIST changes: +DTRSR/10 PO; -FRRG PO; +HYDR-4079 PO; +LISI-461 PO; +MULTTAB58 PO; -OXYC1TAB3 PO; +PRED50TA PO
--- NOTE | 2017-04-19 17:13 | MAMMOGRAPHY REPORT ---
BILATERAL DIGITAL DIAGNOSTIC MAMMOGRAM TOMOSYNTHESIS WITH CAD AND TARGETED RIGHT ULTRASOUND: 04/19/2017 CLINICAL HISTORY: The patient had a CT chest 10/13/2016, in which nodularity was seen within the right upper breast. The patient reports no palpable lumps. TECHNIQUE: Breast tomosynthesis in addition to standard 2D mammography was performed. Current study was also evaluated with a Computer Aided Detection (CAD) system. Bilateral CC and MLO 2-D and tomosy nthesis images were obtained. COMPARISON: Comparison is made to exams dated: 06/12/2014 mammogram and 12/25/2012 mammogram - [facility]. CT chest dated 10/13/2016. BREAST COMPOSITION: The tissue of both breasts is almost entirely fatty. FINDINGS: There are no suspicious masses, calcifications, or areas of architectural distortion noted in either breast. There has been no significant interval change compared to prior exams. Scattered bilateral benign-appearing calcifications are again noted. Targeted ultrasound was performed of the area of the nodularity seen on the CT scan, in the right upp er inner quadrant at approximately 1:00 superiorly. Sonographically normal tissue is seen in this re gion, without evidence of a mass or other suspicious sonographic abnormality. IMPRESSION: ACR BI-RADS CATEGORY 2: BENIGN, TARGETED ULTRASOUND ACR BI-RADS CATEGORY 2: BENIGN No suspicious mammographic or sonographic abnormality at the site of the nodularity seen in the right breast on the prior CT scan. There is no mammographic or targeted sonographic evidence of malignanc y. A 1 year screening mammogram is recommended. The patient has been verbally notified of the result s. Approximately 10% of breast cancers are not detected with mammography. A negative mammographic report should not delay biopsy if a clinically suggestive mass is present. Wendy Tidwell M.D. /:04/19/2017 14:35:43 Client Care Manager: Casandra MARCANO)(Luz), [facility] letter sent: Normal 1/2 BI-RADS Code: ACR BI-RADS Category 2: Benign Ultrasound BI-RADS: ACR BI-RADS Category 2: Benign
== END | disposition home or self-care (01) ==
LOC: C.MAMM 13:10
PROVIDERS: ATTEND Nurse Practitioner
DX: N63 Unspecified lump in breast (principal)

== ENCOUNTER → 2017-05-08 | Outpatient (CLI) | payer OTHER ==
[2017-05-08 17:28] LABS: HEMATOCRIT 42.9 % (37-47); MEAN CELL VOLUME 94.3 fL (80-100); MEAN CORPUSCULAR HGB CONC 32.9 g/dl (32-36); PLATELET COUNT 275 K/uL (130-400); RED BLOOD COUNT 4.55 M/uL (4.2-5.4); WHITE BLOOD COUNT 6.41 K/uL (4.8-10.8)
[2017-05-08 17:42] LABS: ALT/SGPT 20 U/L (12-78); BLOOD UREA NITROGEN 16 mg/dl (7-18); CALCIUM 9.5 mg/dl (8.5-10.1); CARBON DIOXIDE 28 mmol/L (21-32); CHLORIDE 108 mmol/L (98-107); CHOLESTEROL 138 mg/dl (0-200); CREATININE 0.96 mg/dl (0.60-1.20); GLUCOSE 102 mg/dl (70-99); POTASSIUM 4.3 mmol/L (3.5-5.1); SODIUM 142 mmol/L (136-145)
[2017-05-08 17:45] LABS: ALB/GLOB RATIO 1.2 (0.9-2); ALKALINE PHOSPHATASE 92 U/L (45-117); AST/SGOT 13 U/L (15-37); CHOLESTEROL/HDL RATIO 1.9; HDL CHOLESTEROL 71 mg/dl; LDL CHOLESTEROL CALCULATED 50 mg/dl; TRIGLYCERIDES 83 mg/dl (0-150); VERY LOW DENSITY LIPOPROT CALC 17 mg/dl
== END | disposition home or self-care (01) ==
LOC: C.LABBFT 11:56
PROVIDERS: ATTEND Nurse Practitioner
DX: K62.5 Hemorrhage of anus and rectum (principal); E03.9 Hypothyroidism, unspecified; K64.8 Other hemorrhoids; I10 Essential (primary) hypertension; D64.9 Anemia, unspecified; I25.10 Atherosclerotic heart disease of native coronary artery without angina pectoris

== ENCOUNTER → 2017-05-31 | Outpatient (CLI) | payer OTHER ==
[~2017-05-31] MED LIST changes: -METO100T44 PO; +METO1TAB69 PO
--- NOTE | 2017-05-31 12:02 | DIAGNOSTIC IMAGING REPORT ---
(CHEST) THORAX WITHOUT CLINICAL HISTORY: 71 years-old Female presenting with MALIGNANT NEOPLASM BRONCHUS/LUNG, status post left upper lobectomy. TECHNIQUE: Multidetector CT imaging of the chest was performed without the use of intravenous contrast. IV contrast: None. COMPARISON: 10/13/2016. CT DOSE: The estimated cumulative dose is 661.03 mGy.cm. FINDINGS: Rn Supplemental topogram: Unremarkable. On soft tissue windows, normal thyroid and thoracic inlet. No axillary or supraclavicular lymphadenopathy. Subcentimeter prevascular lymph nodes and right paratracheal lymph nodes similar to prior and not pathologically enlarged. Evaluation for hilar lymphadenopathy is limited without intravenous contrast. Atherosclerosis of the aortic arch. Normal heart size. Coronary artery calcification. No pericardial or pleural effusion. Fat-containing right Bochdalek hernia. Upper abdomen normal. Previously noted nodularity in the right upper breast either has resolved or is not included within the [id number] and shown to be benign by recent ultrasound. On lung windows, postoperative changes of left upper lobe resection. Trace emphysema. 2 to 3 mm subsolid nodule noted in the right middle lobe (series 4 image 160). This is unchanged from prior exam. Otherwise no focal infiltrate or nodule. On bone windows, multilevel degenerative changes of the thoracic spine. Degenerative changes of the right lateral humeral joint. IMPRESSION: 1. No convincing evidence of residual or recurrent disease status post left upper lobectomy. 2. Stable 2 to 3 mm subsolid nodule in the right middle lobe. Follow-up per Wm Society 2017 recommendations below. Please refer to below summary of Fleischner criteria recommendations for follow-up of incidental CT nodules (Hernán Maza, Guidelines for management of small pulmonary nodules detected on CT scans: A statement from the Fleischner Society, Radiology 237: [id number].) SOLID NODULES Solitary nodule size: <6 mm * Low risk patients: no follow-up needed * high risk patients: optional CT at 12 months Solitary nodule size: 6-8 mm * Low risk patients: follow-up at 6-12 months, then consider further follow-up at 18-24 months * high risk patients: initial follow-up CT at 6-12 months and then at 18-24 months if no change Solitary nodule size: >8 mm * either low or high risk patients - consider follow-up CT at 3 months, and/or CT-PET, and/or biopsy Multiple nodules size: <6 mm * Low risk patients: no routine follow-up * high risk patients: optional CT at 12 months Multiple nodules size: 6-8 mm * Low risk patients: follow-up at 3-6 months, then consider further follow-up at 18-24 months * high risk patients: follow-up at 3-6 months, then at 18-24 months if no change Multiple nodules size: >8 mm * Low risk patients: follow-up at 3-6 months, then consider further follow-up at 18-24 months * high risk patients: follow-up at 3-6 months, then at 18-24 months if no change Note: newly detected indeterminate nodule in persons 35 years of age or older. * Low risk patients: minimal or absent history of smoking and/or other known risk factors * high risk patients: history of smoking or of other known risk factors (e.g. first degree relative with lung cancer, or exposure to asbestos, radon, uranium) * if a nodule up to 8 mm is partly solid or is ground glass further follow-up is required after 24 months to exclude possible slow growing adenocarcinoma (EDU) SUBSOLID NODULES Solitary pure ground-glass nodule * nodule size <6 mm - no CT follow-up required * nodule size >=6 mm - follow-up CT at 6-12 months, then every 2 years until 5 years Solitary part-solid nodule * nodule size <6 mm - no CT follow-up required * nodule size >=6 mm - follow-up CT at 3-6 months. If unchanged, and solid component remains <6 mm, then annual follow-up for 5 years Multiple subsolid nodules * nodule size <6 mm - follow-up CT at 3-6 months, consider further follow-up at 2 and 4 years if stable * nodule size >=6 mm - follow-up CT at 3-6 months, subsequent management based on the most suspicious nodule(s) Electronically signed by: Chito Anglin M.D. 05/31/2017 12:00 PM Dictated Date/Time: 05/31/2017 11:50 AM
== END | disposition home or self-care (01) ==
LOC: C.CTS 11:05
PROVIDERS: ATTEND Surgery
DX: C34.90 Malignant neoplasm of unspecified part of unspecified bronchus or lung (principal); Z90.2 Acquired absence of lung [part of]; R91.1 Solitary pulmonary nodule

== ENCOUNTER 2017-06-15 21:46 | Emergency (ER) | payer OTHER ==
[~2017-06-15] VITALS: Ht 157.5 cm; Wt 95.4 kg
[~2017-06-15 21:46] MED LIST changes: -DTRSR/10 PO; -HYDR-4079 PO; -LISI-461 PO; -PRED50TA PO
[2017-06-15 21:53] VITALS: TEMP 36.8; Ht 157.5 cm; Wt 95.4 kg
[2017-06-15] MEDS ORDERED: LISI-461 PO (22:18)
[2017-06-15] MEDS ORDERED: DTRSR/10 PO (22:18)
[2017-06-15] MEDS ORDERED: HYDR-4079 PO (22:19)
[2017-06-15 22:41] LABS: BASO % 0.4 %; BASO ABS # 0.02 K/uL (0-0.2); COMPLETE YES; EOS % 3.4 %; HEMATOCRIT 43.8 % (37-47); IG% 0.2 %; LYMPH % 28.2 %; LYMPH ABS # 1.49 K/uL (1.2-3.4); MEAN CORPUSCULAR HGB CONC 34.7 g/dl (32-36); MEAN PLATELET VOLUME 10.4 fL (7.4-10.4); MONO % 12.5 %; NEUT % 55.3 %; PLATELET COUNT 251 K/uL (130-400); RED BLOOD COUNT 4.61 M/uL (4.2-5.4); WHITE BLOOD COUNT 5.29 K/uL (4.8-10.8)
[2017-06-15 22:49] LABS: BLOOD UREA NITROGEN 14 mg/dl (7-18); BUN/CREATININE RATIO 14.9 (10-20); CALCIUM 9.8 mg/dl (8.5-10.1); CARBON DIOXIDE 28 mmol/L (21-32); CHLORIDE 104 mmol/L (98-107); CREATININE 0.91 mg/dl (0.60-1.20); GLUCOSE 86 mg/dl (70-99); POTASSIUM 3.7 mmol/L (3.5-5.1); SODIUM 138 mmol/L (136-145)
--- NOTE | 2017-06-15 23:01 | DIAGNOSTIC IMAGING REPORT ---
CHEST ONE VIEW PORTABLE CLINICAL HISTORY: shortness of breath COMPARISON STUDY: 01/28/2017 FINDINGS: There are postthoracotomy changes on the left hemithorax. The patient appears be status post a left upper lobectomy. The cardiac and mediastinal contours remain stable. There is no failure. There is no focal pulmonary consolidation. There is chronic blunting left lateral costophrenic angle.[ IMPRESSION: Postsurgical change. No active disease in the chest. Electronically signed by: Raj Youssef M.D. 06/15/2017 11:00 PM Dictated Date/Time: 06/15/2017 10:59 PM
[2017-06-15] MEDS ORDERED: HYDROCODONE/ACETAMI 10/325 TAB PO STA (23:09)
[2017-06-16] MEDS ORDERED: OPTIRAY 320 IV PRN (00:15)
[2017-06-16] MEDS ORDERED: PRED50TA PO (01:53)
--- NOTE | 2017-06-16 01:56 | EMERGENCY ROOM VISIT NOTE ---
History First contact with patient: 22:18 Chief Complaint: SHORTNESS OF BREATH Stated Complaint: SOB Nursing Triage Summary: Pt presents als for evaluation of increased sob. Moving boxes all day, became increasingly sob. Hx of lung ca with NABEEL lobectomy. Wears 3L NC at hs. History of Present Illness The patient is a 71 year old female who presents to the Emergency Room with complaints of shortness of breath. The patient states that she has been packing and moving heavy boxes for the past few days because she is moving this weekend. She reports she has had trouble breathing for the past few years which worsened over the past 3 days. She has a history of lung cancer and had a left upper lobectomy last year. She additionally has a history of a CVA, uterine cancer and colon cancer. The patient states that she has had shortness of breath since her lobotomy. She states the shortness of breath is at rest and does not worsen with exertion. She had some slight chest discomfort 10 minutes ago which has resolved. She denies any history of blood clots or cardiac history. She denies any recent long trips. She is a smoker. She follows with Dr. Krishnamurthy regarding her lung cancer. Review of Systems A complete 10 point review of systems was reviewed with the patient with pertinent positives and negatives as per history of present illness. All else were negative. Past Medical/Surgical History Medical Problems: (1) Altered mental status (2) CAD (coronary artery disease) (3) Cerebral vascular accident (4) Degenerative disc disease (5) Dyslipidemia (6) Hypertension (7) Lumbar stenosis (8) Lung cancer (9) Panic disorder without agoraphobia (10) Restless leg syndrome (11) Suicidal ideation (12) Tobacco use disorder Surgical Problems: (1) No pertinent past surgical history Family History Colon cancer Depression Social History Smoking Status: Current Every Day Smoker Alcohol Use: none Drug Use: none Marital Status: Housing Status: lives with family Occupation Status: retired Current/Historical Medications Scheduled Albuterol Sulfate (Proair Respiclick), 2 PUFFS INH QPM Amlodipine Besylate (Norvasc), 10 MG PO QAM Bupropion Hcl (Bupropion Hcl Er), 1 TAB PO BID Buspirone Hcl (Buspar), 15 MG PO BID Clopidogrel Bisulfate (Clopidogrel), 75 MG PO QAM Duloxetine HCl (Duloxetine HCl), 120 MG PO QAM Folic Acid (Folvite), 1 MG PO QAM Home O2 Therapy (Oxygen), 3 LITERS NA HS Ipratropium [place] (Atrovent Hfa), 1 PUFFS INH BID Levothyroxine Sodium (Synthroid), 25 MCG PO QAM Lisinopril (Zestril), 10 MG PO QAM Meloxicam (Meloxicam), 1 TAB PO QAM Metoprolol Succ (Toprol Xl) (Toprol-Xl ), 100 MG PO QAM Multiple Vitamin (Multivitamin), 1 TAB PO DAILY Omeprazole (Prilosec), 40 MG PO DAILY Oxybutynin Chloride (Oxybutynin Chloride ER), 10 MG PO DAILY Prednisone (Prednisone), 50 MG PO DAILY Ropinirole (Requip), 4 MG PO HS Simvastatin (Simvastatin), 1 TAB PO HS Trazodone HCl (Trazodone HCl), 150 MG PO HS Scheduled PRN Hydrocodone/Acetaminophen 10MG/325MG ([place] 10MG/325MG), 1 TAB PO Q4H PRN for Pain Tizanidine (Zanaflex ), 4 MG PO Q8 PRN for Anxiety Physical Exam Vital Signs Date Time Temp Pulse Resp B/P (MAP) Pulse Ox O2 Delivery O2 Flow Rate FiO2 06/16/17 02:09 88 18 149/81 95 06/16/17 01:08 84 06/16/17 00:49 83 18 170/96 94 Room Air 06/16/17 00:04 85 18 155/89 94 Room Air 06/15/17 22:34 Room Air 06/15/17 21:56 91 06/15/17 21:53 Room Air 06/15/17 21:53 36.8 83 18 152/97 95 Room Air Physical Exam VITALS: Vitals are noted on the nurse's note and reviewed by myself. Vital signs stable. GENERAL: This is a 71-year-old female, in no acute distress, nondiaphoretic, well-developed well-nourished. EARS: External auditory canals clear, tympanic membranes pearly muller without erythema or effusion bilaterally. EYES: Pupils equal round and reactive to light and accommodation. MOUTH: Mucous membranes moist. HEART: Regular rate and rhythm without murmurs gallops or rubs. LUNGS: Clear to auscultation bilaterally without wheezes, rales or rhonchi. No retractions or accessory muscle use. NEURO: Patient was alert and oriented to person place and time. Medical Decision & Procedures ER Provider Diagnostic Interpretation: CTA CHEST: No evidence of PE. Lungs are clear. No pleural effusions. No adenopathy. Heart size is normal. Aorta is unremarkable. Radiologist: Erick Flores MD Laboratory Results 06/15/17 21:40 Red Blood Count 4.61, Mean Corpuscular Volume 95.0, Mean Corpuscular Hemoglobin 33.0, Mean Corpuscular Hemoglobin Concent 34.7, Mean Platelet Volume 10.4, Neutrophils (%) (Auto) 55.3, Lymphocytes (%) (Auto) 28.2, Monocytes (%) (Auto) 12.5, Eosinophils (%) (Auto) 3.4, Basophils (%) (Auto) 0.4, Neutrophils # (Auto ) 2.93, Lymphocytes # (Auto) 1.49, Monocytes # (Auto) 0.66, Eosinophils # (Auto ) 0.18, Basophils # (Auto) 0.02 06/15/17 21:40 Test 06/15/17 21:40 White Blood Count 5.29 K/uL (4.8-10.8) Red Blood Count 4.61 M/uL (4.2-5.4) Hemoglobin 15.2 g/dL (12.0-16.0) Hematocrit 43.8 % (37-47) Mean Corpuscular Volume 95.0 fL (80-100) Mean Corpuscular Hemoglobin 33.0 pg (25-34) Mean Corpuscular Hemoglobin Concent 34.7 g/dl (32-36) Platelet Count 251 K/uL (130-400) Mean Platelet Volume 10.4 fL (7.4-10.4) Neutrophils (%) (Auto) 55.3 % Lymphocytes (%) (Auto) 28.2 % Monocytes (%) (Auto) 12.5 % Eosinophils (%) (Auto) 3.4 % Basophils (%) (Auto) 0.4 % Neutrophils # (Auto) 2.93 K/uL (1.4-6.5) Lymphocytes # (Auto) 1.49 K/uL (1.2-3.4) Monocytes # (Auto) 0.66 K/uL (0.11-0.59) Eosinophils # (Auto) 0.18 K/uL (0-0.5) Basophils # (Auto) 0.02 K/uL (0-0.2) RDW Standard Deviation 45.0 fL (36.4-46.3) RDW Coefficient of Variation 12.9 % (11.5-14.5) Immature Granulocyte % (Auto) 0.2 % Immature Granulocyte # (Auto) 0.01 K/uL (0.00-0.02) D-Dimer 910 ug/L FEU (0-500) Anion Gap 6.0 mmol/L (3-11) Est Creatinine Clear Calc Drug Dose 62.8 ml/min Estimated GFR () 74.6 Estimated GFR (Non- 64.4 BUN/Creatinine Ratio 14.9 (10-20) Calcium Level 9.8 mg/dl (8.5-10.1) Troponin I < 0.015 ng/ml (0-0.045) Pro-B-Type Natriuretic Peptide 230 pg/ml (0-900) Medications Administered Medications (Trade) Dose Ordered Sig/Fran Route Start Time Stop Time Status Last Admin Dose Admin Acetaminophen/ Hydrocodone Bitart ([place] 10/325 Tab) 1 tab NOW STAT PO 06/15/17 23:09 06/15/17 23:11 DC 06/15/17 23:16 1 TAB ECG Rate (beats per minute): 80 Rhythm: normal sinus Findings: LBBB Comparison ECG Date: no prior available ED Course The patient was evaluated as above. Labs were drawn and IV access was obtained. Patient was medicated with one tablet of [place] for her chronic back pain. Discharge instructions were reviewed with the patient. The patient verbalized understanding of my assessment and treatment plan and was discharged home in good condition. Medical Decision Differential diagnosis includes pneumonia, COPD exacerbation, bronchitis, pulmonary embolism, CHF, ACS, among others. The patient is a 71-year-old female who presents today complaining of shortness of breath. Labs revealed, leukocytosis. BNP is not elevated. Troponin is not elevated. EKG shows a left bundle-branch block, which is normal for the patient. She had a minute of chest pain while here which has resolved. I do not feel this is cardiac in nature. Chest x-ray was unremarkable. D-dimer was elevated and CT was performed and did not show any evidence of PE. The patient does not appear to be short of breath tonight examination. Her oxygen saturation's remained at 95% and above on room air. She will be placed on prednisone she may have a COPD exacerbation. She was instructed to follow-up with her primary care provider for further evaluation or return here as needed. The patient was independently evaluated by Dr. Levi, ED attending physician, who agreed with my assessment and treatment plan. Medication Reconcilliation Current Medication List: was personally reviewed by me Blood Pressure Screening Patient's blood pressure: Elevated blood pressure Blood pressure disposition: Referred to PCP Impression Primary Impression: Shortness of breath Departure Information Dispostion Home / Self-Care Condition GOOD Prescriptions Prednisone (Prednisone) 50 Mg Tab 50 MG PO DAILY for 5 Days, #5 TAB Prov: Hellen King .KATY 06/16/17 Referrals Daniella Lawrence, C.R.N.P. (PCP) Patient Instructions My [facility] Additional Instructions Prednisone as prescribed. Take this in the morning, as it may affect sleeping patterns. Continue to use your inhalers at home as needed. Follow-up with your family doctor next week. Return to the emergency department with worsening shortness of breath, chest pain, fevers or any other new/concerning symptoms.
--- NOTE | 2017-06-16 01:59 | EMERGENCY ROOM VISIT NOTE ---
ED Visit Note First contact with patient: 22:18 I have personally evaluated this patient examined her and reviewed the pertinent labs and data. I have discussed the case with Hellen King, the physician laundry assistant and agree with the plan. Please refer to the PA note. This patient comes in after feeling short of breath earlier she's been moving a lot of boxes that she is moving to [place]. She's been doing a lot of work lately. She had a brief episode chest pain while she was here but denies any at present and it was a vague. She's had symptoms like this before. EKG shows a left bundle branch block which she says is old and no ischemic changes. She appears in no distress on exam and her lungs are clear. Chest CT she has no evidence of PE. I think this was a COPD exacerbation she may be over exerting herself as well. She declines admission. I told her that she should follow-up with her regular doctor and may need a further cardiac workup as well.
[2017-06-16 02:09] VITALS: BP 149/81; PULSE 88; O2SAT 95
--- NOTE | 2017-06-16 07:20 | DIAGNOSTIC IMAGING REPORT ---
(CHEST FOR PE) ANGIO WITH CLINICAL HISTORY: 71 years-old Female presenting with shortness of breath, elevated d-dimer, history of malignant neoplasm of the bronchus/lung status post left upper lobectomy. TECHNIQUE: Multidetector CT angiography of the chest was performed after administration of intravenous contrast. 3-D volumetric and maximum intensity projection (MIP) images were subsequently reconstructed for review. IV contrast: 103 mL of Optiray 320. A dose lowering technique was used consistent with the principles of ALARA (as low as reasonably achievable). COMPARISON: Chest CT without contrast from 05/31/2017. CT DOSE (mGy.cm): The estimated cumulative dose is 540.14 mGy.cm. FINDINGS: [place] Straightener Stamper topogram: Postsurgical changes at the paramediastinal left apex. Pulmonary vasculature: The study is adequate for assessment of the pulmonary vascular tree. No filling defect within the pulmonary arteries to suggest embolus. Main pulmonary artery not enlarged. Distortion of the left pulmonary artery likely postsurgical. 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 No flattening of the interventricular septum. No intracardiac filling defect. Remaining chest: On soft tissue windows, normal thyroid and thoracic inlet. Scattered subcentimeter mediastinal lymph nodes unchanged from prior nonspecific. Few small hilar lymph nodes also noted bilaterally, also nonspecific. Atherosclerosis of aortic arch with focal noncalcified plaque/adherent thrombus along the left lateral wall immediately inferior to the origin of the left subclavian artery (series 4 image 175). Normal heart size. Coronary artery calcification. No pericardial or pleural effusion. Fat-containing right Bochdalek hernia noted. Upper abdomen otherwise normal. On lung windows, postsurgical changes of left upper lobe resection. Trace emphysema at the right apex. Again demonstrated is the subsolid nodule in the right middle lobe measuring 3 to 4 mm (series 4 image 106), essentially unchanged from prior. No other nodule noted. Postsurgical changes of left upper lobe bronchus. Remaining airways patent. On bone windows, degenerative changes of the thoracic spine. Degenerative changes of the right glenohumeral joint. IMPRESSION: 1. No evidence of pulmonary embolus or acute intrathoracic pathology. 2. Postsurgical changes of left upper lobectomy without convincing evidence of residual or recurrent disease. 3. Trace emphysema. 4. Stable subsolid nodule in the right middle lobe. Follow-up per Fleischner Society 2017 recommendations below. Please refer to below summary of Fleischner Society 2017 recommendations for follow-up of incidental CT nodules (H Link et al. Guidelines for management of incidental pulmonary nodules detected on CT images: From the Fleischner Society 2017. Radiology 2017; 284: 228-243.) SOLID NODULES Single nodule; size <6 mm * Low risk patients: No routine follow-up * High risk patients: Optional CT at 12 months Single nodule; size 6-8 mm * Low risk patients: CT at 6-12 months, then consider CT at 18-24 months * High risk patients: CT at 6-12 months, then at 18-24 months Single nodule; size >8 mm * Either low or high risk patients: Considered CT at 3 months, PET/CT, or tissue sampling Multiple nodules; size <6 mm * Low risk patients: No routine follow up * High risk patients: Optional CT at 12 months Multiple nodules; size 6-8 mm * Low risk patients: CT at 3-6 months, then consider CT at 18-24 months * High risk patients: CT at 3-6 months, then at 18-24 months Multiple nodules; size >8 mm * Low risk patients: CT at 3-6 months, then consider at 18-24 months * High risk patients: CT at 3-6 months, then at 18-24 months Note: These guidelines apply to incidental nodules. These guidelines did not apply to patients younger than 35 years, immunocompromised patients, or patients with cancer. * Low risk patients: Minimal or absent history of smoking and/or other known risk factors * High risk patients: History of smoking, exposure to other carcinogens, emphysema, fibrosis, upper lobe location, family history of lung cancer, etc. * If a nodule up to 8 mm is partly solid or is ground glass further follow-up is required after 24 months to exclude possible slow growing adenocarcinoma SUBSOLID NODULES Single ground-glass nodule * Nodule size < 6 mm: No routine follow-up * Nodule size > or = 6 mm: CT at 6-12 months to confirm persistence, then CT every 2 years until 5 years Single part-solid nodule * Nodule size < 6 mm: No routine follow-up * Nodules size > or = 6 mm: CT at 3-6 months to confirm persistence. If unchanged and solid component remains < 6 mm, annual CT should be performed for 5 years Multiple nodules * Nodule size < 6 mm: CT at 3-6 months. If stable, consider CT at 2 and 4 years. * Nodules size > or = 6 mm: CT at 3-6 months. Subsequent management based on the most suspicious nodule(s) Electronically signed by: Chito Anglin M.D. 06/16/2017 7:19 AM Dictated Date/Time: 06/16/2017 7:09 AM
== END 2017-06-16 02:10 | disposition home or self-care (01) ==
LOC: EDBD 21:46 → C.EDB 21:51
DX: R06.02 Shortness of breath (principal); I44.7 Left bundle-branch block, unspecified; I10 Essential (primary) hypertension; I25.10 Atherosclerotic heart disease of native coronary artery without angina pectoris; E78.5 Hyperlipidemia, unspecified; F17.200 Nicotine dependence, unspecified, uncomplicated; Z86.73 Personal history of transient ischemic attack (TIA), and cerebral infarction without residual deficits; Z79.899 Other long term (current) drug therapy; Z81.8 Family history of other mental and behavioral disorders; Z80.0 Family history of malignant neoplasm of digestive organs